=== PATIENT | male | born 1950 | race Caucasian/White ===

== ENCOUNTER 2017-07-06 20:10 | Emergency (ER) | payer MEDICARE, BC ==
--- NOTE | 2017-07-06 20:30 | EDM.PDOC ---
ED HPI GENERAL MEDICAL PROBLEM - General Chief Complaint: Neuro Symptoms/Deficits Stated Complaint: BY AMBULANCE Time Seen by Provider: 07/06/17 20:24 Source of Information: Reports: Patient, EMS History Limitations: Reports: No Limitations - History of Present Illness INITIAL COMMENTS - FREE TEXT/NARRATIVE: pt states was sitting watching TV when left arm got numb & tingling, denies CP/ SPB/RAMIREZ. had GA 15 years ago and 12 stents last one 5 years ago and also had defib placed 5 years ago in [place]. presently feeling better with arm numbness & tingling. EMS states pt BP high but en route pt became more relaxed and was joking and laughing. denies witnessing motor deficits. - Related Data Allergies Allergy/AdvReac Type Severity Reaction Status Date / Time cephalexin Allergy Anaphylactic Verified 07/06/17 20:17 Shock Home Meds: Home Meds Aspirin [Halfprin] 81 mg PO DAILY 07/24/16 [History] Furosemide [Lasix] 20 mg PO DAILY 07/24/16 [History] Insulin Aspart [NovoLOG] 20 units SQ TIDMEALS 07/24/16 [History] Insulin Detemir [Levemir Flextouch] 80 units SQ BEDTIME 07/24/16 [History] Isosorbide Mononitrate [Imdur] 60 mg PO DAILY 07/24/16 [History] Metoprolol Tartrate [Lopressor] 50 mg PO DAILY 07/24/16 [History] Nitroglycerin [Nitrostat] 0.4 mg SL ASDIRECTED 07/24/16 [History] Pantoprazole [ProTONIX] 40 mg PO DAILY 07/24/16 [History] amLODIPine [Norvasc] 5 mg PO DAILY 07/24/16 [History] atorvaSTATin [Lipitor] 40 mg PO BEDTIME 07/24/16 [History] Social & Family History - Tobacco Use Smoking Status *Q: Never Smoker - Recreational Drug Use Recreational Drug Use: No ED ROS GENERAL - Review of Systems Review Of Systems: ROS reveals no pertinent complaints other than HPI. ED EXAM, NEURO - Physical Exam Exam: See Below Exam Limited By: No Limitations General Appearance: Alert, WD/WN, No Apparent Distress Ears: Hearing Grossly Normal Throat/Mouth: Normal Voice, No Airway Compromise Head Exam: Atraumatic Neck: Non-Tender, Full Range of Motion Respiratory/Chest: No Respiratory Distress Cardiovascular: Regular Rate, Rhythm GI/Abdominal: Soft, Non-Tender Neurological: Alert, Normal Mood/Affect, No Motor/Sensory Deficits Extremities: Normal Inspection, Normal Range of Motion Psychiatric: Normal Affect, Normal Mood Skin Exam: Warm, Dry, Normal Color Course - Vital Signs Last Recorded V/S: Last Vital Signs Temp 37.7 C 07/06/17 20:20 Pulse 61 07/06/17 20:20 Resp 18 07/06/17 20:30 BP 159/61 H 07/06/17 21:29 Pulse Ox 96 07/06/17 20:30 - Orders/Labs/Meds Orders: Active Orders 24 hr Category Date Time Status EKG 12 Lead [EKG Documentation Completion] [RC] STAT Care 07/06/17 20:17 Active Labs: Laboratory Tests 07/06/17 07/06/17 07/06/17 Range/Units 20:20 20:20 20:20 WBC 4.9 L (5.0-10.0) 10^3/uL RBC 4.29 L (4.6-6.2) 10^6/uL Hgb 13.0 L (14.0-18.0) g/dL Hct 37.7 L (40.0-54.0) % MCV 87.9 (80-100) fL MCH 30.3 (27.0-34.0) pg MCHC 34.5 (33.0-35.0) g/dL Plt Count 206 (150-450) 10^3/uL Neut % (Auto) 58.5 (42.2-75.2) % Lymph % (Auto) 21.8 (20.5-50.1) % [place] % (Auto) 14.4 H (2-8) % Eos % (Auto) 5.1 H (1.0-3.0) % Baso % (Auto) 0.2 (0.0-1.0) % PT 9.5 (9.0-12.0) SEC INR 0.9 (0.9-1.2) APTT 28.8 (22.0-34.0) SEC Sodium 137 (135-145) mmol/L Potassium 4.0 (3.6-5.0) mmol/L Chloride 104 (101-111) mmol/L Carbon Dioxide 25.0 (21.0-31.0) mmol/L Anion Gap 12.0 BUN 27 H (7-18) mg/dL Creatinine 2.0 H (0.6-1.3) mg/dL Est Cr Clr Drug Dosing 36.82 mL/min Estimated GFR (MDRD) 34 BUN/Creatinine Ratio 13.50 Glucose 177 H (74-105) mg/dL Calcium 8.6 (8.4-10.2) mg/dl Total Bilirubin 0.4 (0.2-1.0) mg/dL AST 26 (10-42) IU/L ALT 21 (10-60) IU/L Alkaline Phosphatase 69 (42-121) IU/L Troponin I 0.02 (0.00-0.02) ng/ml Total Protein 6.6 L (6.7-8.2) g/dl Albumin 3.5 (3.2-5.5) g/dl Globulin 3.1 Albumin/Globulin Ratio 1.13 Meds: Medications Discontinued Medications Generic Name Dose Route Start Last Admin Trade Name Padilla PRN Reason Stop Dose Admin Clonidine HCl 0.1 mg 07/06/17 21:19 07/06/17 21:29 Catapres PO 07/06/17 21:20 0.1 mg ONETIME ONE Administration - Re-Assessments/Exams Free Text/Narrative Re-Assessment/Exam: 07/06/17 21:18 results discussed with pt who feeling much better numbness gone but hands has slight tingling sensation only. 07/06/17 22:44 s/p catapress with decrease in BP pt continues to feels fine prefers to go home and will watch his salt intake. states did have more salty foods past few days. Departure - Departure Time of Disposition: 22:50 Disposition: Home, Self-Care 01 Condition: Good Clinical Impression: Hypertension Qualifiers: Hypertension type: unspecified secondary hypertension Qualified Code(s): I15.9 - Secondary hypertension, unspecified - Discharge Information Instructions: Hypertension, Lidt-nr-Eeno Forms: ED Department Discharge Additional Instructions: 1) continue home meds 2) avoid too much salty foods 3) see family doctor Sunday 4) return if there is any change or concerns - My Orders Last 24 Hours: My Active Orders 07/06/17 20:17 EKG 12 Lead [EKG Documentation Completion] [RC] STAT - Assessment/Plan Last 24 Hours: My Active Orders 07/06/17 20:17 EKG 12 Lead [EKG Documentation Completion] [RC] STAT
[2017-07-06] MEDS ORDERED: cloNIDine 0.1 MG Tab PO ONE (21:19)
[2017-07-06 21:31] VITALS: BP 159/61
--- NOTE | 2017-07-09 11:16 | EKG ---
07/06/2017- [facility] - This is a 12-lead standard EKG showing normal sinus rhythm with ventricular rate 62 beats per minute. Normal MN interval, QRS duration. Normal axis. No significant ST-T changes. [facility] /[id number]
== END 2017-07-06 22:53 | disposition home or self-care (01) ==
LOC: DL.ED 20:10
DX: I15.9 Secondary hypertension, unspecified (principal); Z88.1 Allergy status to other antibiotic agents; Z79.82 Long term (current) use of aspirin; Z79.4 Long term (current) use of insulin; Z79.899 Other long term (current) drug therapy
CPT/HCPCS: 36415; 70450; 80053; 84484; 85025; 85610; 85730; 93005; 99284; A9270; 93010

== ENCOUNTER 2017-10-17 07:28 | Day surgery (SDC) | payer MEDICARE, BC ==
[2017-10-17] MEDS ORDERED: Moxifloxacin 0.5% Ophth Soln 3 ML Bottle EYERT ONE (07:30)
[2017-10-17] MEDS ORDERED: Phenylephrine 10% Ophth Soln 5 ML Bot EYERT ONE (07:30)
[2017-10-17] MEDS ORDERED: Ondansetron 4 MG/2 ML SDV IVPUSH PRN (07:30)
[2017-10-17] MEDS ORDERED: Sodium Chloride 0.9% 10 ML Syringe FLUSH PRN (07:30)
[2017-10-17] MEDS ORDERED: Povidone-Iodine 5% Sterile Ophth Soln 30 ML Bottle EYERT ONE ×2 (07:30→08:34)
[2017-10-17] MEDS ORDERED: Cataract Ophth Solution EYERT ONE (07:30)
[2017-10-17] MEDS ORDERED: Phenylephrine 10% Ophth Soln 5 ML Bot EYERT PRN (07:30)
[2017-10-17] MEDS ORDERED: Proparacaine 0.5% Ophth Soln 15 ML Bottle EYERT ONE (07:30)
[2017-10-17] MEDS ORDERED: Timolol Maleate 0.5% Ophth Soln 5 ML Bottle EYERT ONE (07:30)
[2017-10-17] MEDS ORDERED: Acetaminophen 325 MG Tab PO PRN (07:30)
[2017-10-17] MEDS ORDERED: Tetracaine HCl/PF 0.5% 4 ML Bottle EYERT ONE (08:33)
[2017-10-17] MEDS ORDERED: Lidocaine 1% 30 ML SDV INJECT ONE (08:39)
[2017-10-17] MEDS ORDERED: Vancomycin 500 MG SDV EYERT ONE (08:41)
[2017-10-17] MEDS ORDERED: Balanced Salt Solution Plus Ophth Irrig 500 ML Bottle IOCULAR ONE (08:41)
[2017-10-17] MEDS ORDERED: Chondroitin Sulfate/Hyaluronate Sodium Ophth Inj 0.75 ML Syringe EYERT ONE (08:46)
[2017-10-17] MEDS ORDERED: Dexamethasone/Neomycin/Polymyxin B Ophth Oint 3.5 GM Tube EYERT ONE (08:50)
[2017-10-17] MEDS ORDERED: Apraclonidine 0.5% Ophth Soln 5 ML Bot EYERT ONE (08:50)
[2017-10-17 10:35] VITALS: BP 185/68
--- NOTE | 2017-10-17 11:20 | OR ---
DATE: 10/17/2017 PREOPERATIVE DIAGNOSIS: Visually significant mixed cataract, right eye. POSTOPERATIVE DIAGNOSIS: Visually significant mixed cataract, right eye. PROCEDURE: Extracapsular cataract extraction with intraocular lens implant, right eye. ANESTHESIA: Topical/local MAC. COMPLICATIONS: None. INDICATION: Mr. Bhatt was seen in the clinic. He is unhappy with his vision. He has noticed a slow progressive change. Clinical examination reveals visually significant cataract. I explained options, offered cataract surgery; and I explained risks including the potential for infection, retinal detachment, and loss of vision amongst others. We discussed implant options. He has requested a monofocal implant. Best spectacle corrected vision is at the level of 20/40. Slit-lamp examination revealed mixed nuclear and central cortical cataract. He voiced an understanding, requested surgery, and voiced understanding with respect to risks. OPERATIVE DESCRIPTION: After informed consent was obtained and the risks, benefits, and alternatives were explained, the patient was brought to the operative suite and topical anesthesia was administered. The patient was then prepped and draped in the sterile fashion, and attention was placed on the right eye. A sterile lid speculum was placed into the right eye to allow operative exposure. A full-thickness paracentesis was made in the temporal portion of the operative eye. Preservative-free lidocaine 0.1 mL was injected into the anterior chamber followed by viscoelastic. A full-thickness corneal incision was then made into the anterior chamber. A bent needle cystotome was used to create a small anastasia in the anterior capsule. The capsulorrhexis forceps was then used to create a 360-degree curvilinear capsulorrhexis. The nucleus was then removed using a phacoemulsification handpiece, and the remaining cortical material was then removed with irrigation and aspiration handpiece. Following removal of the cortical material, the capsular bag was then inspected and noted to be free of any holes or tears. Viscoelastic was then injected into the capsular bag, and the intraocular lens was inserted into the capsular bag. The viscoelastic material was then removed from both the anterior and posterior chambers and from behind the IOL. The lens and capsular bag were then reinspected. The IOL was well centered and the capsular bag intact. The wound and paracentesis sites were inspected and hydrated with balanced saline solution. Both were found to be self-sealing. The intraocular pressure was assessed digitally and found to be within normal range. A good red reflex was noted at the completion of the procedure. No complications occurred during the operation. At the completion of the procedure, Maxitrol, Voltaren, and Iopidine drops were placed into the operative eye. A sterile eye shield was placed over the operative eye, and the patient was transported to the postoperative recovery area having tolerated the procedure well. Postoperative instructions were given along with a postoperative appointment. The patient was advised to call with any questions or concerns. [facility] /[id number]
== END 2017-10-17 09:25 | disposition home or self-care (01) ==
LOC: DL.SDS 07:28
PROVIDERS: ATTEND Ophthalmology
DX: E11.36 Type 2 diabetes mellitus with diabetic cataract (principal); H25.811 Combined forms of age-related cataract, right eye; I12.9 Hypertensive chronic kidney disease with stage 1 through stage 4 chronic kidney disease, or unspecified chronic kidney disease; E11.22 Type 2 diabetes mellitus with diabetic chronic kidney disease; N18.9 Chronic kidney disease, unspecified; E78.5 Hyperlipidemia, unspecified; E66.9 Obesity, unspecified; Z68.34 Body mass index [BMI] 34.0-34.9, adult; Z79.4 Long term (current) use of insulin; Z79.82 Long term (current) use of aspirin; Z79.899 Other long term (current) drug therapy; Z88.1 Allergy status to other antibiotic agents
CPT/HCPCS: 66984; A9270; J3370

== ENCOUNTER 2018-06-29 14:15 | Emergency (ER) | payer MEDICARE, BC ==
[2018-06-29 15:07] LABS: ANION GAP 13.8; CHLORIDE,CL 103 mmol/L (101-111); SODIUM,NA 135 mmol/L (135-145)
--- NOTE | 2018-06-29 15:23 | EDM.PDOC ---
<Ella Christian - Last Filed: 06/29/18 15:05> ED HPI GENERAL MEDICAL PROBLEM - General Chief Complaint: Cardiovascular Problem Stated Complaint: BLOOD PRESSURE UP AND DOWN Time Seen by Provider: 06/29/18 15:05 Source of Information: Reports: Patient History Limitations: Reports: No Limitations - History of Present Illness INITIAL COMMENTS - FREE TEXT/NARRATIVE: Mr. Cartagena is a 67 year old Male presenting with elevated blood pressures. He checks his blood pressures at home was concerned when he had systolic pressures above 200. He states he just doesn't feel right and with the weather he wanted to make sure everything is okay. He reports intermittent lip numbness since a stroke one year ago that has been present today. He denies headache, changes in vision or hearing, dizziness, lightheadedness, chest pain, shortness of breath, nausea, vomiting, changes in bowel or bladder habits, lower extremity edema, or weakness. Onset: Today - Related Data Allergies Allergy/AdvReac Type Severity Reaction Status Date / Time cephalexin Allergy Anaphylactic Verified 06/29/18 14:22 Shock Home Meds: Home Meds Aspirin [Halfprin] 81 mg PO DAILY 07/24/16 [History] Furosemide [Lasix] 20 mg PO BID 07/24/16 [History] Insulin Aspart [NovoLOG] 10 units SQ TIDMEALS 07/24/16 [History] Insulin Detemir [Levemir Flextouch] 80 units SQ BEDTIME 07/24/16 [History] Isosorbide Mononitrate [Imdur] 60 mg PO BID 07/24/16 [History] Nitroglycerin [Nitrostat] 0.4 mg SL ASDIRECTED 07/24/16 [History] amLODIPine [Norvasc] 5 mg PO DAILY 07/24/16 [History] atorvaSTATin [Lipitor] 40 mg PO BEDTIME 07/24/16 [History] Clopidogrel [Plavix] 75 mg PO DAILY 10/08/17 [History] Metoprolol Succinate [Toprol Xl] 100 mg PO DAILY 10/08/17 [History] Chlorthalidone 25 mg PO DAILY 06/29/18 [History] cloNIDine HCl [Catapres] 0.2 mg PO TID 06/29/18 [History] Past Medical History HEENT History: Reports: Cataract, Impaired Vision Other HEENT History: right and left eye. wears glasses Cardiovascular History: Reports: Bypass, CAD, High Cholesterol, Hypertension, Pacemaker. 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 Psychiatric History: Reports: None Endocrine/Metabolic History: Reports: Diabetes, Type II, Obesity/BMI 30+ Hematologic History: Reports: None Immunologic History: Reports: None Oncologic (Cancer) History: Reports: None Dermatologic History: Reports: None - Infectious Disease History Infectious Disease History: Reports: Chicken Pox, Measles, Shingles - Past Surgical History Head Surgeries/Procedures: Reports: None HEENT Surgical History: Reports: Adenoidectomy, Cataract Surgery, Tonsillectomy , Other (See Below) Other HEENT Surgeries/Procedures: esophageal monometry Cardiovascular Surgical History: Reports: Coronary Artery Bypass, Coronary Artery Stent, Other (See Below) Other Cardiovascular Surgeries/Procedures: Implantable cardiverter defibrillator in place GI Surgical History: Reports: Appendectomy, Cholecystectomy, Colonoscopy, EGD Male Surgical History: Reports: None Neurological Surgical History: Reports: None Musculoskeletal Surgical History: Reports: None Social & Family History - Family History Family Medical History: Noncontributory - Tobacco Use Smoking Status *Q: Never Smoker Second Hand Smoke Exposure: No - Caffeine Use Caffeine Use: Reports: Soda Caffeine Use Comment: 1 can daily - Recreational Drug Use Recreational Drug Use: No ED ROS GENERAL - Review of Systems Review Of Systems: ROS reveals no pertinent complaints other than HPI. ED EXAM, GENERAL - Physical Exam Exam: See Below General Appearance: Alert, No Apparent Distress Eye Exam: Bilateral Eye: EOMI, PERRL Ears: Normal External Exam Head: Atraumatic, Normocephalic Neck: Supple, Non-Tender, Full Range of Motion Respiratory/Chest: No Respiratory Distress, Lungs Clear, Normal Breath Sounds Cardiovascular: No Edema, No JVD, No Murmur, Bradycardia, Extra Beats (PAC) GI/Abdominal: Normal Bowel Sounds, Soft, Non-Tender, No Distention, No Abnormal Bruit Extremities: Normal Inspection, Normal Range of Motion, Non-Tender, No Pedal Edema, Normal Capillary Refill Neurological: Alert, Oriented, CN II-XII Intact, No Motor/Sensory Deficits Skin Exam: Warm, Dry, Normal Color Course - Vital Signs Last Recorded V/S: Last Vital Signs Temp 36.5 C 06/29/18 16:20 Pulse 87 06/29/18 16:20 Resp 18 06/29/18 16:20 BP 134/58 L 06/29/18 16:20 Pulse Ox 96 06/29/18 16:20 - Orders/Labs/Meds Orders: Active Orders 24 hr Category Date Time Status EKG 12 Lead [EKG Documentation Completion] [RC] STAT Care 06/29/18 14:31 Active Head wo Cont [CT] Urgent Exams 06/29/18 15:33 Taken Labs: Laboratory Tests 06/29/18 06/29/18 06/29/18 Range/Units 14:40 14:40 14:40 WBC 5.9 (5.0-10.0) 10^3/uL RBC 3.99 L (4.6-6.2) 10^6/uL Hgb 12.4 L (14.0-18.0) g/dL Hct 35.3 L (40.0-54.0) % MCV 88.5 (80-100) fL MCH 31.1 (27.0-34.0) pg MCHC 35.1 H (33.0-35.0) g/dL Plt Count 229 (150-450) 10^3/uL Neut % (Auto) 65.9 (42.2-75.2) % Lymph % (Auto) 20.4 L (20.5-50.1) % [place] % (Auto) 10.9 H (2-8) % Eos % (Auto) 2.5 (1.0-3.0) % Baso % (Auto) 0.3 (0.0-1.0) % PT 10.1 (9.0-12.0) SEC INR 1.0 (0.9-1.2) Sodium 135 (135-145) mmol/L Potassium 4.8 (3.6-5.0) mmol/L Chloride 103 (101-111) mmol/L Carbon Dioxide 23.0 (21.0-31.0) mmol/L Anion Gap 13.8 BUN 38 H (7-18) mg/dL Creatinine 1.7 H (0.6-1.3) mg/dL Est Cr Clr Drug Dosing 42.74 mL/min Estimated GFR (MDRD) 41 BUN/Creatinine Ratio 22.35 Glucose 98 (74-105) mg/dL Calcium 9.1 (8.4-10.2) mg/dl Total Bilirubin 0.8 (0.2-1.0) mg/dL AST 37 (10-42) IU/L ALT 40 (10-60) IU/L Alkaline Phosphatase 81 (42-121) IU/L Troponin I < 0.02 (0.00-0.02) ng/ml Total Protein 7.2 (6.7-8.2) g/dl Albumin 4.0 (3.2-5.5) g/dl Globulin 3.2 Albumin/Globulin Ratio 1.25 Departure - Departure Disposition: Home, Self-Care 01 Clinical Impression: Hypertensive heart disease Qualifiers: Heart failure presence: without heart failure Qualified Code(s): I11.9 - Hypertensive heart disease without heart failure Forms: ED Department Discharge Additional Instructions: 1) follow up with clinic - My Orders Last 24 Hours: My Active Orders 06/29/18 14:31 EKG 12 Lead [EKG Documentation Completion] [RC] STAT - Assessment/Plan Last 24 Hours: My Active Orders 06/29/18 14:31 EKG 12 Lead [EKG Documentation Completion] [RC] STAT <Elia Jain - Last Filed: 06/29/18 16:38> Course - Re-Assessments/Exams Free Text/Narrative Re-Assessment/Exam: 06/29/18 16:37 results discussed with pt who is feeling better with BP 134/58 Departure - Departure Time of Disposition: 16:38 Condition: Good
[2018-06-29 16:21] VITALS: BP 134/58
== END 2018-06-29 16:40 | disposition home or self-care (01) ==
LOC: DL.ED 14:15
DX: I13.10 Hypertensive heart and chronic kidney disease without heart failure, with stage 1 through stage 4 chronic kidney disease, or unspecified chronic kidney disease (principal); N18.3 Chronic kidney disease, stage 3 (moderate); K21.9 Gastro-esophageal reflux disease without esophagitis; E11.22 Type 2 diabetes mellitus with diabetic chronic kidney disease; Z79.82 Long term (current) use of aspirin; Z79.899 Other long term (current) drug therapy; Z79.4 Long term (current) use of insulin; Z95.1 Presence of aortocoronary bypass graft; Z95.0 Presence of cardiac pacemaker
CPT/HCPCS: 36415; 70450; 80053; 84484; 85025; 85610; 93005; 99284-25

== ENCOUNTER 2018-10-17 07:19 | Emergency (ER) | payer MEDICARE, BC ==
[2018-10-17] MEDS ORDERED: Oxymetazoline 0.05% Nasal Spray 15 ML Bottle NAS ONE (07:21)
--- NOTE | 2018-10-17 07:41 | EDM.PDOC ---
ED HPI GENERAL MEDICAL PROBLEM - General Chief Complaint: ENT Problem Stated Complaint: NOSE BLEED Time Seen by Provider: 10/17/18 07:25 Source of Information: Reports: Patient History Limitations: Reports: No Limitations - History of Present Illness INITIAL COMMENTS - FREE TEXT/NARRATIVE: This 68 yo male patient reports to the ED with a nosebleed. The patient reports his nosebleed started this morning at about 0600 and has continued since that time. The patient reports while he was at home he had to changed the paper towel in his right nare several times due to it getting saturated with blood. The patient reports he lives about [address] from the hospital and has not had to change his improvised packing since he left his home. The patient reports he is currently taking Aspirin and Plavix which increased his concern for being able to stop the bleeding. The patient has a history of a heart attack (17 years ago) and a dozen stents placed. The patient denies any trauma to the area. Onset: Today Onset Date: 10/17/18 Onset Time: 06:00 Duration: Constant Location: Reports: Face (right nare) Quality: Reports: Other Severity: Moderate Improves with: Reports: None Worsens with: Reports: None Context: Reports: Other Associated Symptoms: Reports: No Other Symptoms - Related Data Allergies Allergy/AdvReac Type Severity Reaction Status Date / Time cephalexin Allergy Anaphylactic Verified 06/29/18 14:22 Shock Home Meds: Home Meds Aspirin [Halfprin] 81 mg PO DAILY 07/24/16 [History] Furosemide [Lasix] 20 mg PO BID 07/24/16 [History] Insulin Aspart [NovoLOG] 10 units SQ TIDMEALS 07/24/16 [History] Insulin Detemir [Levemir Flextouch] 80 units SQ BEDTIME 07/24/16 [History] Isosorbide Mononitrate [Imdur] 60 mg PO BID 07/24/16 [History] Nitroglycerin [Nitrostat] 0.4 mg SL ASDIRECTED 07/24/16 [History] amLODIPine [Norvasc] 5 mg PO DAILY 07/24/16 [History] atorvaSTATin [Lipitor] 40 mg PO BEDTIME 07/24/16 [History] Clopidogrel [Plavix] 75 mg PO DAILY 10/08/17 [History] Metoprolol Succinate [Toprol Xl] 100 mg PO DAILY 10/08/17 [History] Chlorthalidone 25 mg PO DAILY 06/29/18 [History] cloNIDine HCl [Catapres] 0.2 mg PO TID 06/29/18 [History] Patiromer Calcium Sorbitex [Veltassa] 8.4 gm PO DAILY 10/17/18 [History] Past Medical History HEENT History: Reports: Cataract, Impaired Vision Other HEENT History: right and left eye. wears glasses Cardiovascular History: Reports: Bypass, CAD, High Cholesterol, Hypertension, Pacemaker. 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 Psychiatric History: Reports: None Endocrine/Metabolic History: Reports: Diabetes, Type II, Obesity/BMI 30+ Hematologic History: Reports: None Immunologic History: Reports: None Oncologic (Cancer) History: Reports: None Dermatologic History: Reports: None - Infectious Disease History Infectious Disease History: Reports: Chicken Pox, Measles, Shingles - Past Surgical History Head Surgeries/Procedures: Reports: None HEENT Surgical History: Reports: Adenoidectomy, Cataract Surgery, Tonsillectomy , Other (See Below) Other HEENT Surgeries/Procedures: esophageal monometry Cardiovascular Surgical History: Reports: Coronary Artery Bypass, Coronary Artery Stent, Other (See Below) Other Cardiovascular Surgeries/Procedures: Implantable cardiverter defibrillator in place GI Surgical History: Reports: Appendectomy, Cholecystectomy, Colonoscopy, EGD Male Surgical History: Reports: None Neurological Surgical History: Reports: None Musculoskeletal Surgical History: Reports: None Social & Family History - Family History Family Medical History: Noncontributory - Caffeine Use Caffeine Use: Reports: Soda Caffeine Use Comment: 1 can daily ED ROS ENT - Review of Systems Review Of Systems: ROS reveals no pertinent complaints other than HPI. ED EXAM, ENT - Physical Exam Exam: See Below Exam Limited By: No Limitations General Appearance: Alert, WD/WN, Mild Distress Eye Exam: Bilateral Eye: EOMI, Normal Inspection, PERRL Ears: Normal External Exam Nose: Normal Mucousa, Active Bleeding (Right nare, but no current profuse bleeding upon presentation in the ED. ) Mouth/Throat: Normal Inspection Head: Atraumatic, Normocephalic Neck: Normal Inspection, Supple, Non-Tender, Full Range of Motion Respiratory/Chest: No Respiratory Distress, Lungs Clear, Normal Breath Sounds, No Accessory Muscle Use, Chest Non-Tender Cardiovascular: Normal Peripheral Pulses, Regular Rate, Rhythm, No Edema, No Gallop, No JVD, No Murmur, No Rub GI/Abdominal: Normal Bowel Sounds, Soft, Non-Tender, No Organomegaly, No Distention, No Abnormal Bruit, No Mass (Male) Exam: Deferred Rectal (Males) Exam: Deferred Back: Normal Inspection, Full Range of Motion Extremities: Normal Inspection, Normal Range of Motion, Non-Tender, No Pedal Edema, Normal Capillary Refill Neurological: Alert, Oriented, CN II-XII Intact, Normal Cognition, Normal Gait, Normal Reflexes, No Motor/Sensory Deficits Psychiatric: Normal Affect, Normal Mood Skin: Warm, Dry, Intact, Normal Color, No Rash Lymphatic: No Adenopathy Course - Vital Signs Last Recorded V/S: Last Vital Signs Temp 36.4 C 10/17/18 07:30 Pulse 72 10/17/18 07:30 Resp 18 10/17/18 07:30 BP 162/69 H 10/17/18 07:30 Pulse Ox 99 10/17/18 07:30 - Orders/Labs/Meds Meds: Medications Discontinued Medications Generic Name Dose Route Start Last Admin Trade Name Freq PRN Reason Stop Dose Admin Oxymetazoline HCl 1 ml 10/17/18 07:21 10/17/18 07:30 Afrin Original 0.05% Nasal [place] DHAVAL 10/17/18 07:22 1 ml ONETIME ONE Administration Departure - Departure Time of Disposition: 08:09 Disposition: Home, Self-Care 01 Condition: Fair Clinical Impression: Epistaxis - Discharge Information *PRESCRIPTION DRUG MONITORING PROGRAM REVIEWED*: Not Applicable *COPY OF PRESCRIPTION DRUG MONITORING REPORT IN PATIENT LATANYA: Not Applicable Instructions: Nosebleed, [id number] Forms: ED Department Discharge Care Plan Goals: The patient was advised of the examination results during the visit. The patient 's nose was sprayed with Afrin while in the ED with no further bleeding. If the patient has any additional symptoms or concerns, the patient should either return to the emergency department or visit his primary care facility.
[2018-10-17 07:47] VITALS: BP 162/69
== END 2018-10-17 08:25 | disposition home or self-care (01) ==
LOC: DL.ED 07:19
DX: R04.0 Epistaxis (principal); I25.10 Atherosclerotic heart disease of native coronary artery without angina pectoris; E78.00 Pure hypercholesterolemia, unspecified; N18.3 Chronic kidney disease, stage 3 (moderate); I12.9 Hypertensive chronic kidney disease with stage 1 through stage 4 chronic kidney disease, or unspecified chronic kidney disease; K21.9 Gastro-esophageal reflux disease without esophagitis; E66.9 Obesity, unspecified; E11.22 Type 2 diabetes mellitus with diabetic chronic kidney disease; Z95.0 Presence of cardiac pacemaker; Z88.1 Allergy status to other antibiotic agents; Z79.899 Other long term (current) drug therapy; Z79.82 Long term (current) use of aspirin; Z79.4 Long term (current) use of insulin; Z68.33 Body mass index [BMI] 33.0-33.9, adult
CPT/HCPCS: 99282; A9270

== ENCOUNTER 2018-12-17 03:39 | Emergency (ER) | payer MEDICARE, BC ==
[2018-12-17] MEDS ORDERED: Aspirin 81 MG Tab.Chew PO ONE (03:53)
--- NOTE | 2018-12-17 03:55 | EDM.PDOC ---
ED HPI GENERAL MEDICAL PROBLEM - General Stated Complaint: CHEST PAIN AND NUMB ARM Time Seen by Provider: 12/17/18 03:41 Source of Information: Reports: Patient History Limitations: Reports: No Limitations - History of Present Illness INITIAL COMMENTS - FREE TEXT/NARRATIVE: ED ambulatory with c/o chest pain last 2 hours, nagging " ache, numb feeling" does not radiate to jaw. Prior heart attacks in past, felt same. Pace maker for slow rate, Prior stents, unsure, thinks about " 12", intermittent nausea, no vomiting. Numbness in left arm, tingling sensation since around 8pm last giuliana. Has not noted any weakness. BP has been up past month. NO fever, chills, cough or other GI sx. No hx of neck pain. Middle Chest Pain Score (Numeric/FACES): 2 - Related Data Allergies Allergy/AdvReac Type Severity Reaction Status Date / Time cephalexin Allergy Anaphylactic Verified 12/17/18 03:47 Shock Home Meds: Home Meds Aspirin [Halfprin] 81 mg PO DAILY 07/24/16 [History] Furosemide [Lasix] 20 mg PO BID 07/24/16 [History] Insulin Aspart [NovoLOG] 10 units SQ TIDMEALS 07/24/16 [History] Insulin Detemir [Levemir Flextouch] 80 units SQ BEDTIME 07/24/16 [History] Isosorbide Mononitrate [Imdur] 60 mg PO BID 07/24/16 [History] Nitroglycerin [Nitrostat] 0.4 mg SL ASDIRECTED 07/24/16 [History] amLODIPine [Norvasc] 5 mg PO DAILY 07/24/16 [History] atorvaSTATin [Lipitor] 40 mg PO BEDTIME 07/24/16 [History] Clopidogrel [Plavix] 75 mg PO DAILY 10/08/17 [History] Metoprolol Succinate [Toprol Xl] 100 mg PO DAILY 10/08/17 [History] Chlorthalidone 25 mg PO DAILY 06/29/18 [History] cloNIDine HCl [Catapres] 0.2 mg PO TID 06/29/18 [History] Patiromer Calcium Sorbitex [Veltassa] 8.4 gm PO DAILY 10/17/18 [History] Past Medical History HEENT History: Reports: Cataract, Impaired Vision Other HEENT History: right and left eye. wears glasses Cardiovascular History: Reports: Bypass, CAD, High Cholesterol, Hypertension, Pacemaker. Denies: Blood Clots/VTE/DVT Respiratory History: Reports: Sleep Apnea, Other (See Below) Other Respiratory History: Hx of sleep study Gastrointestinal History: Reports: GERD Genitourinary History: Reports: Chronic Renal Insuffiency, Other (See Below) Other Genitourinary History: chronic renal failure stage 3 Musculoskeletal History: Reports: None Neurological History: Reports: CVA, Other (See Below) Other Neuro History: Sophia palsy Psychiatric History: Reports: None Endocrine/Metabolic History: Reports: Diabetes, Type II, Obesity/BMI 30+ Hematologic History: Reports: None Immunologic History: Reports: None Oncologic (Cancer) History: Reports: None Dermatologic History: Reports: None - Infectious Disease History Infectious Disease History: Reports: Chicken Pox, Measles, Shingles - Past Surgical History Head Surgeries/Procedures: Reports: None HEENT Surgical History: Reports: Adenoidectomy, Cataract Surgery, Tonsillectomy , Other (See Below) Other HEENT Surgeries/Procedures: esophageal monometry Cardiovascular Surgical History: Reports: Coronary Artery Bypass, Coronary Artery Stent, Other (See Below) Other Cardiovascular Surgeries/Procedures: Implantable cardiverter defibrillator in place GI Surgical History: Reports: Appendectomy, Cholecystectomy, Colonoscopy, EGD Male Surgical History: Reports: None Neurological Surgical History: Reports: None Musculoskeletal Surgical History: Reports: None Social & Family History - Family History Family Medical History: Noncontributory - Caffeine Use Caffeine Use: Reports: Soda Caffeine Use Comment: 1 can daily ED ROS GENERAL - Review of Systems Review Of Systems: ROS reveals no pertinent complaints other than HPI. Constitutional: Reports: No Symptoms ED EXAM, GENERAL - Physical Exam Exam: See Below Exam Limited By: No Limitations General Appearance: Alert, No Apparent Distress Eye Exam: Bilateral Eye: EOMI, PERRL (3mm) Ears: Normal External Exam, Hearing Grossly Normal Nose: Normal Inspection Throat/Mouth: Normal Inspection Head: Atraumatic, Normocephalic Neck: Normal Inspection Respiratory/Chest: No Respiratory Distress, Lungs Clear Cardiovascular: Normal Peripheral Pulses, No Edema, Irregularly Irregular GI/Abdominal: Normal Bowel Sounds, Non-Tender Back Exam: Normal Inspection, Full Range of Motion, Vertebral Tenderness Neurological: Alert, Oriented, CN II-XII Intact, Normal Reflexes, No Motor/ Sensory Deficits Psychiatric: Normal Affect, Normal Mood Skin Exam: Warm, Dry, Intact, Normal Color, No Rash. No: Rash Course - Vital Signs Last Recorded V/S: Last Vital Signs Temp 99.0 F 12/17/18 03:45 Pulse 74 12/17/18 03:45 Resp 15 12/17/18 03:45 BP 197/73 H 12/17/18 05:16 Pulse Ox 98 12/17/18 03:45 - Orders/Labs/Meds Orders: Active Orders 24 hr Category Date Time Status EKG Documentation Completion [RC] URGENT Care 12/17/18 03:41 Active Glucose [Blood Glucose Check, Bedside] [RC] ONETIME Care 12/17/18 03:43 Active CXR [Chest 1V Frontal] [CR] Urgent Exams 12/17/18 03:41 Taken Head wo Cont [CT] Urgent Exams 12/17/18 03:41 Taken Labs: Laboratory Tests 12/17/18 12/17/18 12/17/18 Range/Units 03:54 03:55 03:55 WBC 7.1 (5.0-10.0) 10^3/uL RBC 4.25 L (4.6-6.2) 10^6/uL Hgb 12.8 L (14.0-18.0) g/dL Hct 36.4 L (40.0-54.0) % MCV 85.6 (80-100) fL MCH 30.1 (27.0-34.0) pg MCHC 35.2 H (33.0-35.0) g/dL Plt Count 185 (150-450) 10^3/uL Neut % (Auto) 67.9 (42.2-75.2) % Lymph % (Auto) 17.8 L (20.5-50.1) % [place] % (Auto) 11.8 H (2-8) % Eos % (Auto) 2.4 (1.0-3.0) % Baso % (Auto) 0.1 (0.0-1.0) % PT 9.8 (9.0-12.0) SEC INR 1.0 (0.9-1.2) D-Dimer, Quantitative 235 (0-400) ng/mL Sodium (135-145) mmol/L Potassium (3.6-5.0) mmol/L Chloride (101-111) mmol/L Carbon Dioxide (21.0-31.0) mmol/L Anion Gap BUN (7-18) mg/dL Creatinine (0.6-1.3) mg/dL Est Cr Clr Drug Dosing mL/min Estimated GFR (MDRD) BUN/Creatinine Ratio Glucose (74-105) mg/dL POC Glucose 224 H (70-105) mg/dl Calcium (8.4-10.2) mg/dl Magnesium (1.8-2.5) mg/dL Total Bilirubin (0.2-1.0) mg/dL AST (10-42) IU/L ALT (10-60) IU/L Alkaline Phosphatase (42-121) IU/L CK-MB (CK-2) (0.4-4.7) ng/mL Troponin I (0.00-0.02) ng/ml Total Protein (6.7-8.2) g/dl Albumin (3.2-5.5) g/dl Globulin Albumin/Globulin Ratio 12/17/18 12/17/18 Range/Units 03:55 03:55 WBC (5.0-10.0) 10^3/uL RBC (4.6-6.2) 10^6/uL Hgb (14.0-18.0) g/dL Hct (40.0-54.0) % MCV (80-100) fL MCH (27.0-34.0) pg MCHC (33.0-35.0) g/dL Plt Count (150-450) 10^3/uL Neut % (Auto) (42.2-75.2) % Lymph % (Auto) (20.5-50.1) % [place] % (Auto) (2-8) % Eos % (Auto) (1.0-3.0) % Baso % (Auto) (0.0-1.0) % PT (9.0-12.0) SEC INR (0.9-1.2) D-Dimer, Quantitative (0-400) ng/mL Sodium 138 (135-145) mmol/L Potassium 4.3 (3.6-5.0) mmol/L Chloride 107 (101-111) mmol/L Carbon Dioxide 20.0 L (21.0-31.0) mmol/L Anion Gap 15.3 BUN 40 H (7-18) mg/dL Creatinine 1.8 H (0.6-1.3) mg/dL Est Cr Clr Drug Dosing 39.82 mL/min Estimated GFR (MDRD) 38 BUN/Creatinine Ratio 22.22 Glucose 224 H (74-105) mg/dL POC Glucose (70-105) mg/dl Calcium 9.1 (8.4-10.2) mg/dl Magnesium 1.8 (1.8-2.5) mg/dL Total Bilirubin 0.7 (0.2-1.0) mg/dL AST 34 (10-42) IU/L ALT 30 (10-60) IU/L Alkaline Phosphatase 86 (42-121) IU/L CK-MB (CK-2) 3.40 (0.4-4.7) ng/mL Troponin I 0.41 H* (0.00-0.02) ng/ml Total Protein 7.2 (6.7-8.2) g/dl Albumin 3.9 (3.2-5.5) g/dl Globulin 3.3 Albumin/Globulin Ratio 1.18 Meds: Medications Discontinued Medications Generic Name Dose Route Start Last Admin Trade Name Freq PRN Reason Stop Dose Admin Aspirin 162 mg 12/17/18 03:53 12/17/18 03:58 Aspirin PO 12/17/18 03:54 162 mg ONETIME ONE Administration Heparin Sodium (Porcine) 4,000 units 12/17/18 04:54 12/17/18 05:06 Heparin Sodium IVPUSH 12/17/18 04:55 4,000 units .BOLUS ONE Administration Heparin Sodium/Sodium Chloride 25,000 units in 500 mls @ 24.625 mls/hr 05:00 12/17/18 05:06 Heparin 25,000 Units In 1/2 Ns 500 Ml IV 12 units/kg/hr TITRATE MICHELLE 24.625 mls/hr Administration Protocol 12 UNITS/KG/HR Lorazepam 1 mg 12/17/18 05:27 12/17/18 05:29 Ativan IVPUSH 12/17/18 05:28 1 mg ONETIME ONE Administration Lorazepam Confirm 12/17/18 05:27 12/17/18 05:35 Ativan Administered 12/17/18 05:28 Not Given Dose 2 mg .ROUTE .STK-MED ONE Nitroglycerin 0.4 mg 12/17/18 03:52 12/17/18 05:16 Nitrostat SL 12/17/18 03:53 0.4 mg ONETIME ONE Administration - Radiology Interpretation Free Text/Narrative:: [facility] [place] [facility] Final Radiology Report Call: [phone] assistance Online chat: [email or web address] Name: MERCY RYAN Age: 68Years M Date: 12/17/2018 SSN: -- : 1950 Study: CT HEAD WO Requesting Physician: JOSEPH PEREZ Images: 150 Addl Studies: Provided Clinical History: Contrast: Without Contrast Medium: Contrast Amount: Contrast Method: Page 1 of 2 EXAM: CT Head Without Contrast EXAM DATE/TIME: 12/17/2018 4:25 AM CLINICAL HISTORY: 68 years old, male; Other: Left arm numbness TECHNIQUE: Imaging protocol: Computed tomography images of the head without contrast. Radiation optimization: All CT scans at this facility use at least one of these dose optimization techniques: automated exposure control; mA and/or kV adjustment per patient size (includes targeted exams where dose is matched to clinical indication); or iterative reconstruction. COMPARISON: CT Head wo Cont 06/29/2018 3:46 PM FINDINGS: Brain: Normal. No hemorrhage. Unremarkable white matter. No mass effect. Ventricles: Normal. No ventriculomegaly. Bones/joints: Unremarkable. No acute fracture. Sinuses: Chronic right maxillary sinusitis. Mastoid air cells: Visualized mastoid air cells are well aerated. No mastoid effusion. Soft tissues: Unremarkable. Vasculature: Atherosclerotic calcification of the carotid siphons. IMPRESSION: 1. No acute intracranial process. 2. Chronic right maxillary sinusitis. MERCY RYAN | Final Radiology Report CONFIDENTIALITY STATEMENT This report is intended only for use by the referring physician, and only in accordance with law. If you received this in error, call [phone]. Page 2 of 2 Thank you for allowing us to participate in the care of your patient. Dictated and Authenticated by: Alma Patel MD 12/17/2018 5:13 AM Central Time ([place] & [place]) [facility] [place] [facility] Final Radiology Report Call: [phone] assistance Online chat: [email or web address] Name: MERCY RYAN Age: 68Years M Date: 12/17/2018 SSN: -- : 1950 Study: XR CHEST 1 VIEW FRONTAL Requesting Physician: JOSEPH PEREZ Images: 1 Addl Studies: Provided Clinical History: Contrast: Contrast Medium: Contrast Amount: Contrast Method: CONFIDENTIALITY STATEMENT This report is intended only for use by the referring physician, and only in accordance with law. If you received this in error, call [phone]. Page 1 of 1 EXAM: XR Chest, 1 View EXAM DATE/TIME: 12/17/2018 4:25 AM CLINICAL HISTORY: 68 years old, male; Other: Left arm numbness TECHNIQUE: Imaging protocol: XR of the chest, 1 view. COMPARISON: CR CHEST PORTABLE 10/21/2012 3:23 AM FINDINGS: Tubes, catheters and devices: Left chest wall pacemaker/defibrillator. Lungs: No interstitial infiltrate. No consolidation. Pleural space: No pleural effusion. No pneumothorax. Heart/Mediastinum: No cardiomegaly. Vasculature: Tortuous and atherosclerotic thoracic aorta. Bones/joints: Stable. IMPRESSION: No acute cardiopulmonary process. Thank you for allowing us to participate in the care of your patient. Dictated and Authenticated by: Alma Patel MD 12/17/2018 5:14 AM Central Time ([place] & [place]) - Re-Assessments/Exams Free Text/Narrative Re-Assessment/Exam: 12/17/18 04:58 Pain in chest relieved after one nitro. Vague discomfort tingling in left arm, No weakness or change in sensation. Describes similar sensation with previous SC. Dr Henry accepting of patient. Tx via [facility]. Heparin gtt, initiated prior tx. Departure - Departure Time of Disposition: 05:35 Disposition: DC/Tfer to Acute Hospital 02 Reason for Transfer *Q: Other Condition: Undetermined Clinical Impression: NSTEMI (non-ST elevated myocardial infarction) HTN (hypertension) Qualifiers: Hypertension type: unspecified secondary hypertension Qualified Code(s): I15.9 - Secondary hypertension, unspecified Forms: ED Department Discharge - My Orders Last 24 Hours: My Active Orders 12/17/18 03:41 EKG Documentation Completion [RC] URGENT CXR [Chest 1V Frontal] [CR] Urgent Head wo Cont [CT] Urgent 12/17/18 03:43 Glucose [Blood Glucose Check, Bedside] [RC] ONETIME - Assessment/Plan Last 24 Hours: My Active Orders 12/17/18 03:41 EKG Documentation Completion [RC] URGENT CXR [Chest 1V Frontal] [CR] Urgent Head wo Cont [CT] Urgent 12/17/18 03:43 Glucose [Blood Glucose Check, Bedside] [RC] ONETIME
[2018-12-17] MEDS: Nitroglycerin 0.4 MG Tab.SL SL ONE ×2 (03:58→05:16)
[2018-12-17 04:22] LABS: ANION GAP 15.3
[2018-12-17] MEDS ORDERED: Heparin Sodium 5,000 Units/ML Vial IVPUSH ONE (04:54)
[2018-12-17] MEDS ORDERED: Heparin Sodium/0.45% NaCl 25,000 UNITS/500 ML BAG IV SCH (05:00)
[2018-12-17 05:17] VITALS: BP 197/73
[2018-12-17] MEDS ORDERED: LORazepam 2 MG/ML Syringe ONE (05:27)
[2018-12-17] MEDS ORDERED: LORazepam 2 MG/ML Syringe IVPUSH ONE (05:27)
== END 2018-12-17 05:34 ==
LOC: DL.ED 03:39
DX: I21.4 Non-ST elevation (NSTEMI) myocardial infarction (principal); I15.1 Hypertension secondary to other renal disorders; E11.22 Type 2 diabetes mellitus with diabetic chronic kidney disease; I12.9 Hypertensive chronic kidney disease with stage 1 through stage 4 chronic kidney disease, or unspecified chronic kidney disease; N18.3 Chronic kidney disease, stage 3 (moderate); E78.00 Pure hypercholesterolemia, unspecified; E66.9 Obesity, unspecified; K21.9 Gastro-esophageal reflux disease without esophagitis; Z86.73 Personal history of transient ischemic attack (TIA), and cerebral infarction without residual deficits; Z88.1 Allergy status to other antibiotic agents; Z79.82 Long term (current) use of aspirin; Z79.4 Long term (current) use of insulin; Z90.49 Acquired absence of other specified parts of digestive tract; Z98.890 Other specified postprocedural states; Z68.30 Body mass index [BMI] 30.0-30.9, adult
CPT/HCPCS: 36415; 70450; 71045; 80053; 82553; 82962; 83735; 84484; 85025; 85379; 85610; 93005; 96365; 96375; 99285; A9270; J1644; J2060

== ENCOUNTER 2019-04-03 21:55 | Emergency (ER) | payer MEDICARE, BC ==
[2019-04-03] MEDS ORDERED: Sodium Chloride 0.9% 10 ML Syringe FLUSH PRN (22:00)
[2019-04-03 22:11] VITALS: PULSE 58
--- NOTE | 2019-04-03 22:22 | EDM.PDOC ---
ED HPI GENERAL MEDICAL PROBLEM - General Chief Complaint: Chest Pain Stated Complaint: CHEST PAINS, SHOULDER /ARM NUMB Time Seen by Provider: 04/03/19 22:15 Source of Information: Reports: Patient, RN, RN Notes Reviewed History Limitations: Reports: No Limitations - History of Present Illness INITIAL COMMENTS - FREE TEXT/NARRATIVE: PATIENT PRESENTS TO ER with complaint of left sided chest pain, left shoulder pain, and feeling of numbness in the left arm. Patient states he had NSTEMI in December 2018. Patient states he had an angiogram done at that time. Patient states he has a history of several heart attacks in the past, pacemaker defibrillator, stents, bypass. Patient states this episode of pain feels similar to past episodes of MIs. Patient admits to diabetes, and some kidney dysfunction. Patient states he took a nitroglycerin at home prior to coming to the ER, and states he is mostly pain-free at this time. Patient was at rest when the pain began, sitting in the chair. Time of onset was about 8:30 PM tonight. 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 Left Anterior Chest Pain Score (Numeric/FACES): 4 - Related Data Allergies Allergy/AdvReac Type Severity Reaction Status Date / Time cephalexin Allergy Anaphylactic Verified 12/17/18 03:47 Shock Home Meds: Home Meds Aspirin [Halfprin] 81 mg PO DAILY 07/24/16 [History] Furosemide [Lasix] 20 mg PO BID 07/24/16 [History] Insulin Aspart [NovoLOG] 10 units SQ TIDMEALS 07/24/16 [History] Insulin Detemir [Levemir Flextouch] 80 units SQ BEDTIME 07/24/16 [History] Isosorbide Mononitrate [Imdur] 60 mg PO BID 07/24/16 [History] Nitroglycerin [Nitrostat] 0.4 mg SL ASDIRECTED 07/24/16 [History] amLODIPine [Norvasc] 5 mg PO DAILY 07/24/16 [History] atorvaSTATin [Lipitor] 40 mg PO BEDTIME 07/24/16 [History] Clopidogrel [Plavix] 75 mg PO DAILY 10/08/17 [History] Metoprolol Succinate [Toprol Xl] 100 mg PO DAILY 10/08/17 [History] Chlorthalidone 25 mg PO DAILY 06/29/18 [History] cloNIDine HCl [Catapres] 0.2 mg PO TID 06/29/18 [History] Patiromer Calcium Sorbitex [Veltassa] 8.4 gm PO DAILY 10/17/18 [History] Past Medical History HEENT History: Reports: Cataract, Impaired Vision Other HEENT History: right and left eye. wears glasses Cardiovascular History: Reports: Bypass, CAD, High Cholesterol, Hypertension, ID , Pacemaker Respiratory History: Reports: Sleep Apnea, Other (See Below) Other Respiratory History: Hx of sleep study Gastrointestinal History: Reports: GERD Genitourinary History: Reports: Chronic Renal Insuffiency, Other (See Below) Other Genitourinary History: chronic renal failure stage 3 Musculoskeletal History: Reports: None Neurological History: Reports: CVA, Other (See Below) Other Neuro History: [place] palsy Psychiatric History: Reports: None Endocrine/Metabolic History: Reports: Diabetes, Type II, Obesity/BMI 30+ Hematologic History: Reports: None Immunologic History: Reports: None Oncologic (Cancer) History: Reports: None Dermatologic History: Reports: None - Infectious Disease History Infectious Disease History: Reports: Chicken Pox, Measles, Shingles - Past Surgical History Head Surgeries/Procedures: Reports: None HEENT Surgical History: Reports: Adenoidectomy, Cataract Surgery, Tonsillectomy , Other (See Below) Other HEENT Surgeries/Procedures: esophageal monometry Cardiovascular Surgical History: Reports: Coronary Artery Bypass, Coronary Artery Stent, Other (See Below) Other Cardiovascular Surgeries/Procedures: Implantable cardiverter defibrillator in place GI Surgical History: Reports: Appendectomy, Cholecystectomy, Colonoscopy, EGD Male Surgical History: Reports: None Neurological Surgical History: Reports: None Musculoskeletal Surgical History: Reports: None Social & Family History - Family History Family Medical History: Noncontributory - Tobacco Use Smoking Status *Q: Unknown Ever Smoked - Caffeine Use Caffeine Use: Reports: None Caffeine Use Comment: 1 can daily - Alcohol Use Days Per Week of Alcohol Use: 1 Number of Drinks Per Day: 1 Total Drinks Per Week: 1 - Recreational Drug Use Recreational Drug Use: No ED ROS GENERAL - Review of Systems Review Of Systems: Comprehensive ROS is negative, except as noted in HPI. ED EXAM, GENERAL - Physical Exam Exam: See Below Exam Limited By: No Limitations General Appearance: Alert, WD/WN, No Apparent Distress Eye Exam: Bilateral Eye: EOMI, Normal Inspection Ears: Normal External Exam, Hearing Grossly Normal Nose: Normal Inspection Throat/Mouth: Normal Inspection, Normal Voice, No Airway Compromise Head: Atraumatic, Normocephalic Neck: Normal Inspection, Supple, Non-Tender, Full Range of Motion Respiratory/Chest: No Respiratory Distress, Lungs Clear, Normal Breath Sounds, No Accessory Muscle Use, Chest Non-Tender Cardiovascular: Normal Peripheral Pulses, Regular Rate, Rhythm, No Edema, No Gallop, No JVD, No Murmur, No Rub Peripheral Pulses: 2+: Radial (L), Radial (R) GI/Abdominal: Normal Bowel Sounds, Soft, Non-Tender (Male) Exam: Deferred Rectal (Males) Exam: Deferred Back Exam: Normal Inspection, Full Range of Motion, NT Extremities: Normal Inspection, Normal Range of Motion, Non-Tender, Normal Capillary Refill, No Pedal Edema Neurological: Alert, Oriented, CN II-XII Intact, Normal Cognition, Normal Gait, Normal Reflexes, No Motor/Sensory Deficits Psychiatric: Normal Affect, Normal Mood Skin Exam: Warm, Dry, Intact, Normal Color, No Rash Lymphatic: No Adenopathy Course - Vital Signs Last Recorded V/S: Last Vital Signs Temp 97.5 F 04/03/19 22:09 Pulse 58 L 04/03/19 22:09 Resp 18 04/03/19 22:09 BP 150/55 H 04/03/19 23:34 Pulse Ox 100 04/03/19 22:09 - Orders/Labs/Meds Labs: Laboratory Tests 04/03/19 04/03/19 04/03/19 Range/Units 22:10 22:10 22:10 WBC 5.9 (5.0-10.0) 10^3/uL RBC 3.73 L (4.6-6.2) 10^6/uL Hgb 11.3 L D (14.0-18.0) g/dL Hct 32.7 L (40.0-54.0) % MCV 87.7 (80-100) fL MCH 30.3 (27.0-34.0) pg MCHC 34.6 (33.0-35.0) g/dL Plt Count 168 (150-450) 10^3/uL Neut % (Auto) 61.5 (42.2-75.2) % Lymph % (Auto) 19.1 L (20.5-50.1) % [place] % (Auto) 13.2 H (2-8) % Eos % (Auto) 6.0 H (1.0-3.0) % Baso % (Auto) 0.2 (0.0-1.0) % PT 9.9 (9.0-12.0) SEC INR 1.0 (0.9-1.2) Sodium 135 (135-145) mmol/L Potassium 4.2 (3.6-5.0) mmol/L Chloride 104 (101-111) mmol/L Carbon Dioxide 23.0 (21.0-31.0) mmol/L Anion Gap 12.2 BUN 34 H (7-18) mg/dL Creatinine 2.0 H (0.6-1.3) mg/dL Est Cr Clr Drug Dosing 34.68 mL/min Estimated GFR (MDRD) 33 BUN/Creatinine Ratio 17.00 Glucose 252 H (74-105) mg/dL Calcium 8.6 (8.4-10.2) mg/dl Total Bilirubin 0.6 (0.2-1.0) mg/dL AST 23 (10-42) IU/L ALT 23 (10-60) IU/L Alkaline Phosphatase 75 (42-121) IU/L Troponin I < 0.02 (0.00-0.02) ng/ml Total Protein 7.3 (6.7-8.2) g/dl Albumin 4.1 (3.2-5.5) g/dl Globulin 3.2 Albumin/Globulin Ratio 1.28 04/04/19 Range/Units 02:05 WBC (5.0-10.0) 10^3/uL RBC (4.6-6.2) 10^6/uL Hgb (14.0-18.0) g/dL Hct (40.0-54.0) % MCV (80-100) fL MCH (27.0-34.0) pg MCHC (33.0-35.0) g/dL Plt Count (150-450) 10^3/uL Neut % (Auto) (42.2-75.2) % Lymph % (Auto) (20.5-50.1) % [place] % (Auto) (2-8) % Eos % (Auto) (1.0-3.0) % Baso % (Auto) (0.0-1.0) % PT (9.0-12.0) SEC INR (0.9-1.2) Sodium (135-145) mmol/L Potassium (3.6-5.0) mmol/L Chloride (101-111) mmol/L Carbon Dioxide (21.0-31.0) mmol/L Anion Gap BUN (7-18) mg/dL Creatinine (0.6-1.3) mg/dL Est Cr Clr Drug Dosing mL/min Estimated GFR (MDRD) BUN/Creatinine Ratio Glucose (74-105) mg/dL Calcium (8.4-10.2) mg/dl Total Bilirubin (0.2-1.0) mg/dL AST (10-42) IU/L ALT (10-60) IU/L Alkaline Phosphatase (42-121) IU/L Troponin I < 0.02 (0.00-0.02) ng/ml Total Protein (6.7-8.2) g/dl Albumin (3.2-5.5) g/dl Globulin Albumin/Globulin Ratio Meds: Medications Discontinued Medications Generic Name Dose Route Start Last Admin Trade Name Freq PRN Reason Stop Dose Admin Nitroglycerin 0.4 mg 04/03/19 23:29 04/03/19 23:34 Nitrostat SL 04/03/19 23:30 0.4 mg Q5M ONE Administration Sodium Chloride 10 ml 04/03/19 22:00 04/03/19 22:10 Saline Flush FLUSH 10 ml ASDIRECTED PRN Administration Keep Vein Open - Radiology Interpretation Free Text/Narrative:: Chest xray: FINDINGS: Tubes, catheters and devices: Cardiac pacemaker without gross hardware complication or change. Lungs: Normal pulmonary expansion. Pulmonary vasculature grossly normal. No infiltrates. Pleural space: No pleural effusion. No pneumothorax. Heart/Mediastinum: Heart size normal. No tracheal/mediastinal shift. Bones/joints: Prior median sternotomy. No acute osseous abnormalities are identified. IMPRESSION: No acute thoracic process. No change from prior exam 12/17/2018. Thank you for allowing us to participate in the care of your patient. Dictated and Authenticated by: Cornelio Menchaca MD 04/03/2019 10:35 PM Central Time ([place] & [place]) See rad report - Re-Assessments/Exams Free Text/Narrative Re-Assessment/Exam: 04/04/19 00:42 Patient taken to the medical floor for extended ER. Troponin and EKG will be rechecked in 4 hours, unless signs and symptoms change. Patient states understanding. 04/04/19 04:55 repeat troponin is negative, repeat KG shows sinus arrhythmia with a rate of 56 , no ST elevation. Departure - Departure Time of Disposition: 08:26 Disposition: Home, Self-Care 01 Reason for Transfer *Q: Other Condition: Fair Clinical Impression: Angina at rest Instructions: Coronary Artery Disease, Male, Angina Pectoris, [id number] Referrals: PCP,Unobtain [Primary Care Provider] - Forms: ED Department Discharge Additional Instructions: use nitroglycerin as directed for pain as needed Return to the ER with any worsening of symptoms Follow-up with your primary care provider Sepsis Event Note - Evaluation Sepsis Screening Result: No Definite Risk - Focused Exam Date Exam was Performed: 04/07/19 Time Exam was Performed: 07:00
[2019-04-03 22:38] LABS: ANION GAP 12.2; CHLORIDE,CL 104 mmol/L (101-111); SODIUM,NA 135 mmol/L (135-145)
[2019-04-03] MEDS ORDERED: Nitroglycerin 0.4 MG Tab.SL SL ONE (23:29)
[2019-04-03 23:35] VITALS: BP 150/55
== END 2019-04-04 08:26 | disposition home or self-care (01) ==
LOC: DL.ED 21:55
DX: I25.119 Atherosclerotic heart disease of native coronary artery with unspecified angina pectoris (principal); I25.2 Old myocardial infarction; I12.9 Hypertensive chronic kidney disease with stage 1 through stage 4 chronic kidney disease, or unspecified chronic kidney disease; N18.3 Chronic kidney disease, stage 3 (moderate); E78.00 Pure hypercholesterolemia, unspecified; E11.22 Type 2 diabetes mellitus with diabetic chronic kidney disease; E66.9 Obesity, unspecified; Z68.35 Body mass index [BMI] 35.0-35.9, adult; Z95.1 Presence of aortocoronary bypass graft; Z79.4 Long term (current) use of insulin; Z79.02 Long term (current) use of antithrombotics/antiplatelets; Z79.899 Other long term (current) drug therapy; Z86.73 Personal history of transient ischemic attack (TIA), and cerebral infarction without residual deficits; Z88.1 Allergy status to other antibiotic agents; Z88.2 Allergy status to sulfonamides; Z95.5 Presence of coronary angioplasty implant and graft
CPT/HCPCS: 36415; 71045; 80053; 84484; 85025; 85610; 93005; 99285; A9270

== ENCOUNTER 2019-05-20 00:42 | Emergency (ER) | payer MEDICARE, BC ==
[2019-05-20 01:01] VITALS: BP 165/62; PULSE 60
[2019-05-20 01:35] LABS: ANION GAP 11.1; CHLORIDE,CL 103 mmol/L (101-111); SODIUM,NA 135 mmol/L (135-145)
--- NOTE | 2019-05-20 02:16 | EDM.PDOC ---
ED HPI GENERAL MEDICAL PROBLEM - General Chief Complaint: Chest Pain Stated Complaint: CHEST PAIN AND RIGHT HAND NUMBNESS Time Seen by Provider: 05/20/19 01:00 Source of Information: Reports: Patient, RN, RN Notes Reviewed History Limitations: Reports: No Limitations - History of Present Illness INITIAL COMMENTS - FREE TEXT/NARRATIVE: patient presents to ER with complaint of left-sided chest pain, left shoulder pain, left arm numbness, tingling. Patient had a NSTEMI on Labor Day this past year, angiogram was done, no stents placed. Patient states the chest pain began earlier this afternoon, and have been intermittent. Patient states blood pressure was elevated earlier today, blood pressure within normal limits at this time. Patient states pain has resolved at this time. Onset: Today, Sudden Duration: Intermittent - Related Data Allergies Allergy/AdvReac Type Severity Reaction Status Date / Time cephalexin Allergy Anaphylactic Verified 05/20/19 01:01 Shock Home Meds: Home Meds Aspirin [Halfprin] 81 mg PO DAILY 07/24/16 [History] Furosemide [Lasix] 20 mg PO BID 07/24/16 [History] Insulin Aspart [NovoLOG] 10 units SQ TIDMEALS 07/24/16 [History] Insulin Detemir [Levemir Flextouch] 80 units SQ BEDTIME 07/24/16 [History] Isosorbide Mononitrate [Imdur] 60 mg PO BID 07/24/16 [History] Nitroglycerin [Nitrostat] 0.4 mg SL ASDIRECTED 07/24/16 [History] amLODIPine [Norvasc] 5 mg PO DAILY 07/24/16 [History] atorvaSTATin [Lipitor] 40 mg PO BEDTIME 07/24/16 [History] Clopidogrel [Plavix] 75 mg PO DAILY 10/08/17 [History] Metoprolol Succinate [Toprol Xl] 100 mg PO DAILY 10/08/17 [History] Chlorthalidone 25 mg PO DAILY 06/29/18 [History] cloNIDine HCl [Catapres] 0.2 mg PO TID 06/29/18 [History] Patiromer Calcium Sorbitex [Veltassa] 8.4 gm PO DAILY 10/17/18 [History] Past Medical History HEENT History: Reports: Cataract, Impaired Vision Other HEENT History: right and left eye. 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 Psychiatric History: Reports: None Endocrine/Metabolic History: Reports: Diabetes, Type II, Obesity/BMI 30+ Hematologic History: Reports: None Immunologic History: Reports: None Oncologic (Cancer) History: Reports: None Dermatologic History: Reports: None - Infectious Disease History Infectious Disease History: Reports: Chicken Pox, Measles, Shingles - Past Surgical History Head Surgeries/Procedures: Reports: None HEENT Surgical History: Reports: Adenoidectomy, Cataract Surgery, Tonsillectomy , Other (See Below) Other HEENT Surgeries/Procedures: esophageal monometry Cardiovascular Surgical History: Reports: Coronary Artery Bypass, Coronary Artery Stent, Other (See Below) Other Cardiovascular Surgeries/Procedures: Implantable cardiverter defibrillator in place GI Surgical History: Reports: Appendectomy, Cholecystectomy, Colonoscopy, EGD Male Surgical History: Reports: None Neurological Surgical History: Reports: None Musculoskeletal Surgical History: Reports: None Social & Family History - Family History Family Medical History: Noncontributory - Tobacco Use Smoking Status *Q: Never Smoker Second Hand Smoke Exposure: No - Caffeine Use Caffeine Use: Reports: None Caffeine Use Comment: 1 can daily - Recreational Drug Use Recreational Drug Use: No ED ROS GENERAL - Review of Systems Review Of Systems: Comprehensive ROS is negative, except as noted in HPI. ED EXAM, GENERAL - Physical Exam Exam: See Below Exam Limited By: No Limitations General Appearance: Alert, WD/WN, No Apparent Distress Eye Exam: Bilateral Eye: EOMI, Normal Inspection Ears: Normal External Exam, Hearing Grossly Normal Nose: Normal Inspection Throat/Mouth: Normal Inspection, Normal Voice, No Airway Compromise Head: Atraumatic, Normocephalic Neck: Normal Inspection, Supple, Non-Tender, Full Range of Motion Respiratory/Chest: No Respiratory Distress, Lungs Clear, No Accessory Muscle Use , Chest Non-Tender, Decreased Breath Sounds Cardiovascular: Normal Peripheral Pulses, Regular Rate, Rhythm, No Edema, No Gallop, No JVD, No Murmur, No Rub Peripheral Pulses: 2+: Radial (L), Radial (R) GI/Abdominal: Normal Bowel Sounds, Soft, Non-Tender (Male) Exam: Deferred Rectal (Males) Exam: Deferred Back Exam: Normal Inspection, Full Range of Motion, NT Extremities: Normal Inspection, Normal Range of Motion, Non-Tender, Normal Capillary Refill, No Pedal Edema Neurological: Alert, Oriented, CN II-XII Intact, Normal Cognition, Normal Gait, Normal Reflexes, No Motor/Sensory Deficits Psychiatric: Normal Affect, Normal Mood Skin Exam: Warm, Dry, Intact, Normal Color, No Rash Lymphatic: No Adenopathy Course - Vital Signs Last Recorded V/S: Last Vital Signs Temp 98.2 F 05/20/19 00:49 Pulse 60 05/20/19 00:49 Resp 20 05/20/19 00:49 BP 165/62 H 05/20/19 00:49 Pulse Ox 99 05/20/19 00:49 - Orders/Labs/Meds Orders: Active Orders 24 hr Category Date Time Status EKG Documentation Completion [RC] STAT Care 05/20/19 00:49 Active Chest 1V Frontal [CR] Stat Exams 05/20/19 00:51 Taken Labs: Laboratory Tests 05/20/19 05/20/19 05/20/19 Range/Units 01:06 01:06 01:06 WBC 6.8 (5.0-10.0) 10^3/uL RBC 3.65 L (4.6-6.2) 10^6/uL Hgb 11.2 L (14.0-18.0) g/dL Hct 32.0 L (40.0-54.0) % MCV 87.7 (80-100) fL MCH 30.7 (27.0-34.0) pg MCHC 35.0 (33.0-35.0) g/dL Plt Count 186 (150-450) 10^3/uL Neut % (Auto) 65.5 (42.2-75.2) % Lymph % (Auto) 16.4 L (20.5-50.1) % Jones % (Auto) 12.3 H (2-8) % Eos % (Auto) 5.4 H (1.0-3.0) % Baso % (Auto) 0.4 (0.0-1.0) % PT 9.7 (9.0-12.0) SEC INR 0.9 (0.9-1.2) Sodium 135 (135-145) mmol/L Potassium 4.1 (3.6-5.0) mmol/L Chloride 103 (101-111) mmol/L Carbon Dioxide 25.0 (21.0-31.0) mmol/L Anion Gap 11.1 BUN 34 H (7-18) mg/dL Creatinine 1.9 H (0.6-1.3) mg/dL Est Cr Clr Drug Dosing 37.73 mL/min Estimated GFR (MDRD) 36 BUN/Creatinine Ratio 17.89 Glucose 223 H (74-105) mg/dL Calcium 9.0 (8.4-10.2) mg/dl Total Bilirubin 0.7 (0.2-1.0) mg/dL AST 29 (10-42) IU/L ALT 26 (10-60) IU/L Alkaline Phosphatase 69 (42-121) IU/L Troponin I < 0.02 (0.00-0.02) ng/ml B-Natriuretic Peptide 141 H (0-100) pg/ml Total Protein 7.3 (6.7-8.2) g/dl Albumin 4.0 (3.2-5.5) g/dl Globulin 3.3 Albumin/Globulin Ratio 1.21 - Radiology Interpretation Free Text/Narrative:: Chest xray: FINDINGS: Tubes, catheters and devices: A pacemaker defibrillator is placed via the left subclavian vein. Lungs: Unremarkable. No consolidation. Pleural space: Unremarkable. No pleural effusion. No pneumothorax. Heart/Mediastinum: Unremarkable. No cardiomegaly. Bones/joints: Unremarkable. IMPRESSION: There are no acute chest findings. Thank you for allowing us to participate in the care of your patient. Dictated and Authenticated by: Rommel Plascencia MD 05/20/2019 1:35 AM Central Time ([place] & [place]) See rad report Departure - Departure Time of Disposition: 02:16 Disposition: Home, Self-Care 01 Reason for Transfer *Q: Other Condition: Fair Clinical Impression: Angina at rest Instructions: Nonspecific Chest Pain, [id number], Angina Pectoris, Easy-to- Read Referrals: PCP,None [Ordering Only Provider] - Forms: ED Department Discharge Additional Instructions: return to the ER with any worsening of symptoms Follow-up with your primary care provider Sepsis Event Note - Evaluation Sepsis Screening Result: No Definite Risk - Focused Exam Vital Signs: Vital Signs Temp Pulse Resp BP Pulse Ox 05/20/19 00:49 98.2 F 60 20 165/62 H 99 Date Exam was Performed: 05/20/19 Time Exam was Performed: 04:08 - My Orders Last 24 Hours: My Active Orders 05/20/19 00:49 EKG Documentation Completion [RC] STAT 05/20/19 00:51 Chest 1V Frontal [CR] Stat - Assessment/Plan Last 24 Hours: My Active Orders 05/20/19 00:49 EKG Documentation Completion [RC] STAT 05/20/19 00:51 Chest 1V Frontal [CR] Stat
== END 2019-05-20 02:25 | disposition home or self-care (01) ==
LOC: DL.ED 00:42
DX: I20.9 Angina pectoris, unspecified (principal); E78.00 Pure hypercholesterolemia, unspecified; I25.2 Old myocardial infarction; E11.22 Type 2 diabetes mellitus with diabetic chronic kidney disease; I12.9 Hypertensive chronic kidney disease with stage 1 through stage 4 chronic kidney disease, or unspecified chronic kidney disease; N18.3 Chronic kidney disease, stage 3 (moderate); I25.10 Atherosclerotic heart disease of native coronary artery without angina pectoris; E66.9 Obesity, unspecified; Z88.1 Allergy status to other antibiotic agents; Z86.73 Personal history of transient ischemic attack (TIA), and cerebral infarction without residual deficits; Z68.34 Body mass index [BMI] 34.0-34.9, adult; Z79.4 Long term (current) use of insulin; Z79.82 Long term (current) use of aspirin; Z79.899 Other long term (current) drug therapy
CPT/HCPCS: 36415; 71045; 80053; 83880; 84484; 85025; 85610; 93005; 99283; 99285-25

== ENCOUNTER 2020-03-08 16:18 | Emergency (ER) | payer MEDICARE, BC ==
[2020-03-08] MEDS ORDERED: Aspirin 81 MG Tab.Chew PO ONE (16:34)
[2020-03-08 16:55] VITALS: BP 151/71; PULSE 57
--- NOTE | 2020-03-08 17:31 | EDM.PDOC ---
ED HPI GENERAL MEDICAL PROBLEM - General Chief Complaint: Chest Pain Stated Complaint: CHEST PAINS Time Seen by Provider: 03/08/20 17:20 Source of Information: Reports: Patient History Limitations: Reports: No Limitations - History of Present Illness INITIAL COMMENTS - FREE TEXT/NARRATIVE: This 69 yo male patient reports to the ED with chest pain. The patient reports his chest pain started today at about 1400 and went away after her reported to the ED. The patient reports he has had a history of intermittent chest pains. The patient reports he has had similar episodes that resolved after he urinated or had a bowel movement. Onset: Today Onset Date: 03/08/20 Onset Time: 14:00 Duration: Resolved Prior to Arrival Location: Reports: Chest Quality: Reports: Ache, Sharp Severity: Moderate Improves with: Reports: None Worsens with: Reports: None Context: Reports: Other Associated Symptoms: Reports: Chest Pain Chest Pain Score (Numeric/FACES): 4 - Related Data Allergies Allergy/AdvReac Type Severity Reaction Status Date / Time cephalexin Allergy Anaphylactic Verified 03/08/20 16:55 Shock Home Meds: Home Meds Aspirin [Halfprin] 81 mg PO DAILY 07/24/16 [History] Furosemide [Lasix] 20 mg PO BID 07/24/16 [History] Insulin Aspart [NovoLOG] 10 units SQ TIDMEALS 07/24/16 [History] Insulin Detemir [Levemir Flextouch] 80 units SQ BEDTIME 07/24/16 [History] Isosorbide Mononitrate [Imdur] 60 mg PO BID 07/24/16 [History] Nitroglycerin [Nitrostat] 0.4 mg SL ASDIRECTED 07/24/16 [History] amLODIPine [Norvasc] 5 mg PO DAILY 07/24/16 [History] atorvaSTATin [Lipitor] 40 mg PO BEDTIME 07/24/16 [History] Clopidogrel [Plavix] 75 mg PO DAILY 10/08/17 [History] Metoprolol Succinate [Toprol Xl] 100 mg PO DAILY 10/08/17 [History] Chlorthalidone 25 mg PO DAILY 06/29/18 [History] cloNIDine HCL [Catapres] 0.2 mg PO TID 06/29/18 [History] Patiromer Calcium Sorbitex [Veltassa] 8.4 gm PO DAILY 10/17/18 [History] Past Medical History HEENT History: Reports: Cataract, Impaired Vision Other HEENT History: right and left eye. 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 Psychiatric History: Reports: None Endocrine/Metabolic History: Reports: Diabetes, Type II, Obesity/BMI 30+ Hematologic History: Reports: None Immunologic History: Reports: None Oncologic (Cancer) History: Reports: None Dermatologic History: Reports: None - Infectious Disease History Infectious Disease History: Reports: Chicken Pox, Measles, Shingles - Past Surgical History Head Surgeries/Procedures: Reports: None HEENT Surgical History: Reports: Adenoidectomy, Cataract Surgery, Tonsillectomy, Other (See Below) Other HEENT Surgeries/Procedures: esophageal monometry Cardiovascular Surgical History: Reports: Coronary Artery Bypass, Coronary Artery Stent, Other (See Below) Other Cardiovascular Surgeries/Procedures: Implantable cardiverter defibrillator in place GI Surgical History: Reports: Appendectomy, Cholecystectomy, Colonoscopy, EGD Male Surgical History: Reports: None Neurological Surgical History: Reports: None Musculoskeletal Surgical History: Reports: None Social & Family History - Family History Family Medical History: No Pertinent Family History - Tobacco Use Tobacco Use Status *Q: Never Tobacco User Second Hand Smoke Exposure: No - Caffeine Use Caffeine Use: Reports: None Caffeine Use Comment: 1 can daily - Recreational Drug Use Recreational Drug Use: No ED ROS GENERAL - Review of Systems Review Of Systems: Comprehensive ROS is negative, except as noted in HPI. ED EXAM, GENERAL - Physical Exam Exam: See Below Exam Limited By: No Limitations General Appearance: Alert, WD/WN, Mild Distress, Obese Eye Exam: Bilateral Eye: EOMI, Normal Inspection, PERRL Ears: Normal External Exam, Normal Canal, Hearing Grossly Normal, Normal TMs Nose: Normal Inspection, Normal Mucosa, No Blood Throat/Mouth: Normal Inspection, Normal Lips, Normal Teeth, Normal Gums, Normal Oropharynx, Normal Voice, No Airway Compromise Head: Atraumatic, Normocephalic Neck: Normal Inspection, Supple, Non-Tender, Full Range of Motion Respiratory/Chest: No Respiratory Distress, Lungs Clear, Normal Breath Sounds, No Accessory Muscle Use, Chest Non-Tender Cardiovascular: Normal Peripheral Pulses, Regular Rate, Rhythm, No Edema, No Gallop, No JVD, No Murmur, No Rub GI/Abdominal: Normal Bowel Sounds, Soft, Non-Tender, No Organomegaly, No Distention, No Abnormal Bruit, No Mass (Male) Exam: Deferred Rectal (Males) Exam: Deferred Back Exam: Normal Inspection, Full Range of Motion, NT Extremities: Normal Inspection, Normal Range of Motion, Non-Tender, Normal Capillary Refill, No Pedal Edema Neurological: Alert, Oriented, CN II-XII Intact, Normal Cognition, Normal Gait, Normal Reflexes, No Motor/Sensory Deficits Psychiatric: Normal Affect, Normal Mood Skin Exam: Warm, Dry, Intact, Normal Color, No Rash Lymphatic: No Adenopathy Course - Vital Signs Last Recorded V/S: Last Vital Signs Temp 36.9 C 03/08/20 16:52 Pulse 57 L 03/08/20 16:52 Resp 16 03/08/20 16:52 BP 151/71 H 03/08/20 16:52 Pulse Ox 99 03/08/20 16:52 - Orders/Labs/Meds Orders: Active Orders 24 hr Category Date Time Status EKG 12 Lead [EKG Documentation Completion] [RC] URGENT Care 03/08/20 17:00 Active Chest 1V Frontal [CR] Urgent Exams 03/08/20 17:52 Taken Labs: Laboratory Tests 03/08/20 03/08/20 03/08/20 Range/Units 16:49 16:49 16:49 WBC 4.6 L (5.0-10.0) 10^3/uL RBC 3.61 L (4.6-6.2) 10^6/uL Hgb 11.3 L (14.0-18.0) g/dL Hct 32.1 L (40.0-54.0) % MCV 88.9 (80-100) fL MCH 31.3 (27.0-34.0) pg MCHC 35.2 H (33.0-35.0) g/dL Plt Count 164 (150-450) 10^3/uL Neut % (Auto) 56.5 (42.2-75.2) % Lymph % (Auto) 20.0 L (20.5-50.1) % [place] % (Auto) 16.2 H (2-8) % Eos % (Auto) 7.1 H (1.0-3.0) % Baso % (Auto) 0.2 (0.0-1.0) % D-Dimer, Quantitative 362 (0-400) ng/mL Sodium 138 (136-145) mmol/L Potassium 4.4 (3.5-5.1) mmol/L Chloride 102 (98-107) mmol/L Carbon Dioxide 27 (21-32) mmol/L Anion Gap 13.4 H (7-13) mEq/L BUN 33 H (7-18) mg/dL Creatinine 2.14 H (0.70-1.30) mg/dL Est Cr Clr Drug Dosing 33.04 mL/min Estimated GFR (MDRD) 31 BUN/Creatinine Ratio 15.4 (No establ ref range) Glucose 100 H (74-99) mg/dL Calcium 8.8 (8.5-10.1) mg/dL Total Bilirubin 0.5 (0.2-1.0) mg/dL AST 26 (15-37) U/L ALT 36 (16-63) U/L Alkaline Phosphatase 97 (46-116) U/L Troponin I < 0.017 (0.000-0.056) ng/mL Total Protein 6.8 (6.4-8.2) g/dL Albumin 3.4 (3.4-5.0) g/dL Globulin 3.4 Albumin/Globulin Ratio 1.0 Meds: Medications Discontinued Medications Generic Name Dose Route Start Last Admin Trade Name Freq PRN Reason Stop Dose Admin Aspirin 324 mg 03/08/20 16:34 03/08/20 16:50 Aspirin PO 03/08/20 16:35 324 mg ONETIME ONE Administration Departure - Departure Time of Disposition: 18:17 Disposition: Home, Self-Care 01 Condition: Fair Clinical Impression: Nonspecific chest pain Instructions: Nonspecific Chest Pain, Adult, [id number] Forms: ED Department Discharge Care Plan Goals: The patient was advised of the examination, lab, EKG and x-ray results during the visit. The patient was encouraged to continue to monitor for any additional symptoms or concerns. The patient should follow-up with his primary care facility for continued evaluation and management. If the patient has any additional symptoms or concerns, the patient was encouraged to either return to the emergency department or visit his primary care facility. Sepsis Event Note (ED) - Evaluation Sepsis Screening Result: No Definite Risk - Focused Exam Vital Signs: Vital Signs Temp Pulse Resp BP Pulse Ox 03/08/20 16:52 36.9 C 57 L 16 151/71 H 99 - My Orders Last 24 Hours: My Active Orders 03/08/20 17:00 EKG 12 Lead [EKG Documentation Completion] [RC] URGENT 03/08/20 17:52 Chest 1V Frontal [CR] Urgent - Assessment/Plan Last 24 Hours: My Active Orders 03/08/20 17:00 EKG 12 Lead [EKG Documentation Completion] [RC] URGENT 03/08/20 17:52 Chest 1V Frontal [CR] Urgent
[2020-03-08 17:37] LABS: ANION GAP 13.4 mEq/L (7-13); CHLORIDE,CL 102 mmol/L (98-107); SODIUM,NA 138 mmol/L (136-145)
--- NOTE | 2020-03-08 18:30 | CR ---
PROCEDURE INFORMATION: Exam: XR Chest, 1 View Exam date and time: 03/08/2020 6:08 PM Age: 69 years old Clinical indication: Chest pain; Type not specified TECHNIQUE: Imaging protocol: XR of the chest Views: 1 view. COMPARISON: CR Chest 1V Frontal 05/20/2019 1:12 AM FINDINGS: Lungs: Unremarkable. No consolidation. Pleural space: Unremarkable. No pleural effusion. No pneumothorax. Heart/Mediastinum: Heart enlarged. Median sternotomy sutures. Indwelling pacemaker with single chamber lead wire. Bones/joints: Unremarkable. IMPRESSION: Stable cardiomegaly with indwelling pacemaker. Post thoracotomy. No change from previous study. No acute findings
== END 2020-03-08 18:25 | disposition home or self-care (01) ==
LOC: DL.ED 16:18
DX: R07.9 Chest pain, unspecified (principal); I25.10 Atherosclerotic heart disease of native coronary artery without angina pectoris; E78.00 Pure hypercholesterolemia, unspecified; I12.9 Hypertensive chronic kidney disease with stage 1 through stage 4 chronic kidney disease, or unspecified chronic kidney disease; N18.30 Chronic kidney disease, stage 3 unspecified; E11.22 Type 2 diabetes mellitus with diabetic chronic kidney disease; I25.2 Old myocardial infarction; E66.9 Obesity, unspecified; Z68.36 Body mass index [BMI] 36.0-36.9, adult; Z88.1 Allergy status to other antibiotic agents; Z79.82 Long term (current) use of aspirin; Z79.4 Long term (current) use of insulin; Z79.02 Long term (current) use of antithrombotics/antiplatelets; Z79.899 Other long term (current) drug therapy; Z95.1 Presence of aortocoronary bypass graft; Z86.73 Personal history of transient ischemic attack (TIA), and cerebral infarction without residual deficits
CPT/HCPCS: 36415; 71045; 80053; 84484; 85025; 85379; 93005; 99283; 99285; A9270

== ENCOUNTER 2020-08-28 22:59 | Emergency (ER) | payer MEDICARE, BC ==
[2020-08-28] MEDS ORDERED: Aspirin 81 MG Tab.Chew ONE (23:04)
--- NOTE | 2020-08-28 23:08 | EDM.PDOC ---
ED HPI GENERAL MEDICAL PROBLEM - General Chief Complaint: Chest Pain Stated Complaint: CHEST PAIN,NUMBNESS LEFT ARM Time Seen by Provider: 08/28/20 23:08 Source of Information: Reports: Patient, RN, RN Notes Reviewed History Limitations: Reports: No Limitations - History of Present Illness INITIAL COMMENTS - FREE TEXT/NARRATIVE: Patient is a 70-year-old male who presents to ER with complaint of numbness of the left arm and dull chest pains. He states the numbness of the left arm began this afternoon, with chest pains beginning approximately an hour ago on his way into the ER. He states that he gets numbness of the left arm frequently, but it really does not stay around too long, today it stayed much longer than usual. Patient has significant cardiac history, including bypass and stents placed. In December patient was here with similar complaints. He was sent to [facility], and angiogram was done, no stents placed at that time. Patient denies any radiation of the pain into the shoulder, back, neck or jaw. Patient states he took 1 nitro and the pain is improved, as well as the numbness in the left arm. Patient denies any recent illness. Denies ever having Covid, and states he has been vaccinated for Covid. Onset: Today, Sudden Duration: Constant, Improving Location: Reports: Chest, Upper Extremity, Left Quality: Reports: Ache Severity: Mild - Related Data Allergies Allergy/AdvReac Type Severity Reaction Status Date / Time cephalexin Allergy Anaphylactic Verified 08/28/20 23:11 Shock Home Meds: Home Meds Aspirin [Halfprin] 81 mg PO DAILY 07/24/16 [History] Furosemide [Lasix] 40 mg PO DAILY 07/24/16 [History] Insulin Aspart [NovoLOG] 10 units SQ TIDMEALS 07/24/16 [History] Isosorbide Mononitrate [Imdur] 60 mg PO BID 07/24/16 [History] Nitroglycerin [Nitrostat] 0.4 mg SL ASDIRECTED 07/24/16 [History] amLODIPine [Norvasc] 10 mg PO DAILY 07/24/16 [History] atorvaSTATin [Lipitor] 80 mg PO BEDTIME 07/24/16 [History] Clopidogrel [Plavix] 75 mg PO DAILY 10/08/17 [History] Chlorthalidone 25 mg PO DAILY 06/29/18 [History] cloNIDine HCL [Catapres] 0.2 mg PO TID 06/29/18 [History] Insulin Glargine,Hum.Rec.Anlog [Basaglar Kwikpen U-100] 0 units SQ ASDIRECTED 08/29/20 [History] Losartan [Cozaar] 25 mg PO DAILY 08/29/20 [History] Pantoprazole Sodium [Protonix] 40 mg PO DAILY 08/29/20 [History] Sodium Zirconium Cyclosilicate [Lokelma] 10 gm PO DAILY 08/29/20 [History] carvediloL [Carvedilol] 50 mg PO DAILY 08/29/20 [History] Past Medical History HEENT History: Reports: Cataract, Impaired Vision Other HEENT History: right and left eye. 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 Psychiatric History: Reports: None Endocrine/Metabolic History: Reports: Diabetes, Type II, Obesity/BMI 30+ Hematologic History: Reports: None Immunologic History: Reports: None Oncologic (Cancer) History: Reports: None Dermatologic History: Reports: None - Infectious Disease History Infectious Disease History: Reports: Chicken Pox, Measles, Shingles - Past Surgical History Head Surgeries/Procedures: Reports: None HEENT Surgical History: Reports: Adenoidectomy, Cataract Surgery, Tonsillectomy, Other (See Below) Other HEENT Surgeries/Procedures: esophageal monometry Cardiovascular Surgical History: Reports: Coronary Artery Bypass, Coronary Artery Stent, Other (See Below) Other Cardiovascular Surgeries/Procedures: Implantable cardiverter defibrillator in place GI Surgical History: Reports: Appendectomy, Cholecystectomy, Colonoscopy, EGD Male Surgical History: Reports: None Neurological Surgical History: Reports: None Musculoskeletal Surgical History: Reports: None Social & Family History - Family History Family Medical History: No Pertinent Family History - Caffeine Use Caffeine Use: Reports: None Caffeine Use Comment: 1 can daily ED ROS GENERAL - Review of Systems Review Of Systems: Comprehensive ROS is negative, except as noted in HPI. ED EXAM, GENERAL - Physical Exam Exam: See Below Exam Limited By: No Limitations General Appearance: Alert, WD/WN, No Apparent Distress Eye Exam: Bilateral Eye: EOMI, Normal Inspection Ears: Normal External Exam, Hearing Grossly Normal Nose: Normal Inspection Throat/Mouth: Normal Inspection, Normal Voice, No Airway Compromise Head: Atraumatic, Normocephalic Neck: Normal Inspection, Supple, Non-Tender, Full Range of Motion Cardiovascular: Normal Peripheral Pulses, Regular Rate, Rhythm, No Edema, No Gallop, No JVD, No Murmur, No Rub Peripheral Pulses: 2+: Radial (L), Radial (R) GI/Abdominal: Normal Bowel Sounds, Soft, Non-Tender (Male) Exam: Deferred Rectal (Males) Exam: Deferred Back Exam: Normal Inspection, Full Range of Motion, NT Extremities: Normal Inspection, Normal Range of Motion, Non-Tender, Normal Capillary Refill, No Pedal Edema Neurological: Alert, Oriented, CN II-XII Intact, Normal Cognition, Normal Gait, Normal Reflexes, No Motor/Sensory Deficits Psychiatric: Normal Affect, Normal Mood Skin Exam: Warm, Dry, Intact, Normal Color, No Rash Lymphatic: No Adenopathy #1 Interpretation EKG Date: 08/28/20 Time: 23:05 Rhythm: NSR Rate (Beats/Min): 59 [place]: Normal P-Wave: Present QRS: Normal ST-T: Normal QT: Prolonged Comparison: Change From Previous EKG #2 Interpretation EKG Date: 08/29/20 Time: 03:07 Rhythm: Other (Sinus bradycardia) Rate (Beats/Min): 55 [place]: Normal P-Wave: Present QRS: Normal ST-T: Normal QT: Normal WV/PQ Interval: First degree AV block Comparison: Change From Previous EKG Course - Vital Signs Last Recorded V/S: Last Vital Signs Temp 98.8 F 08/29/20 00:25 Pulse 51 L 08/29/20 02:05 Resp 20 08/29/20 00:25 BP 127/54 L 08/29/20 02:05 Pulse Ox 90 L 08/29/20 02:05 - Orders/Labs/Meds Orders: Active Orders 24 hr Category Date Time Status EKG Documentation Completion [RC] STAT Care 08/28/20 23:07 Active EKG Documentation Completion [RC] STAT Care 08/29/20 03:15 Active Sodium Chloride 0.9% [Normal Saline] 1,000 ml Med 08/28/20 23:56 Active IV .BOLUS Medication Orders Sodium Chloride (Normal Saline) 1,000 mls @ 100 mls/hr IV .BOLUS ONE Stop: 08/29/20 09:55 Last Admin: 08/28/20 23:58 Dose: 100 mls/hr Documented by: DENISE Labs: Laboratory Tests 08/28/20 08/28/20 08/28/20 Range/Units 23:18 23:18 23:18 WBC 4.9 L (5.0-10.0) 10^3/uL RBC 3.93 L (4.6-6.2) 10^6/uL Hgb 11.9 L (14.0-18.0) g/dL Hct 34.7 L (40.0-54.0) % MCV 88.3 (80-100) fL MCH 30.3 (27.0-34.0) pg MCHC 34.3 (33.0-35.0) g/dL Plt Count 193 (150-450) 10^3/uL Neut % (Auto) 57.4 (42.2-75.2) % Lymph % (Auto) 20.3 L (20.5-50.1) % [place] % (Auto) 15.8 H (2-8) % Eos % (Auto) 5.9 H (1.0-3.0) % Baso % (Auto) 0.6 (0.0-1.0) % PT (9.0-12.0) SEC INR (0.9-1.2) Sodium 136 (136-145) mmol/L Potassium 4.1 (3.5-5.1) mmol/L Chloride 100 (98-107) mmol/L Carbon Dioxide 26 (21-32) mmol/L Anion Gap 14.1 H (7-13) mEq/L BUN 50 H (7-18) mg/dL Creatinine 2.70 H (0.70-1.30) mg/dL Est Cr Clr Drug Dosing TNP Estimated GFR (MDRD) 24 BUN/Creatinine Ratio 18.5 (No establ ref range) Glucose 216 H (70-99) mg/dL Calcium 8.5 (8.5-10.1) mg/dL Total Bilirubin 0.6 (0.2-1.0) mg/dL AST 27 (15-37) U/L ALT 39 (16-63) U/L Alkaline Phosphatase 107 (46-116) U/L Creatine Kinase 110 (39-308) U/L Creatine Kinase Index 1.4 (0-2.4) % CK-MB (CK-2) 1.5 (0.0-3.6) ng/mL Troponin I < 0.017 (0.000-0.056) ng/mL B-Natriuretic Peptide 126 H (0-100) pg/ml Total Protein 7.3 (6.4-8.2) g/dL Albumin 3.7 (3.4-5.0) g/dL Globulin 3.6 Albumin/Globulin Ratio 1.0 08/28/20 08/29/20 Range/Units 23:18 03:32 WBC (5.0-10.0) 10^3/uL RBC (4.6-6.2) 10^6/uL Hgb (14.0-18.0) g/dL Hct (40.0-54.0) % MCV (80-100) fL MCH (27.0-34.0) pg MCHC (33.0-35.0) g/dL Plt Count (150-450) 10^3/uL Neut % (Auto) (42.2-75.2) % Lymph % (Auto) (20.5-50.1) % [place] % (Auto) (2-8) % Eos % (Auto) (1.0-3.0) % Baso % (Auto) (0.0-1.0) % PT 10.4 (9.0-12.0) SEC INR 1.0 (0.9-1.2) Sodium (136-145) mmol/L Potassium (3.5-5.1) mmol/L Chloride (98-107) mmol/L Carbon Dioxide (21-32) mmol/L Anion Gap (7-13) mEq/L BUN (7-18) mg/dL Creatinine (0.70-1.30) mg/dL Est Cr Clr Drug Dosing Estimated GFR (MDRD) BUN/Creatinine Ratio (No establ ref range) Glucose (70-99) mg/dL Calcium (8.5-10.1) mg/dL Total Bilirubin (0.2-1.0) mg/dL AST (15-37) U/L ALT (16-63) U/L Alkaline Phosphatase (46-116) U/L Creatine Kinase (39-308) U/L Creatine Kinase Index (0-2.4) % CK-MB (CK-2) (0.0-3.6) ng/mL Troponin I < 0.017 (0.000-0.056) ng/mL B-Natriuretic Peptide (0-100) pg/ml Total Protein (6.4-8.2) g/dL Albumin (3.4-5.0) g/dL Globulin Albumin/Globulin Ratio Meds: Medications Generic Name Dose Route Start Last Admin Trade Name Freq PRN Reason Stop Dose Admin Sodium Chloride 1,000 mls @ 100 mls/hr 08/28/20 23:56 08/28/20 23:58 Normal Saline IV 08/29/20 09:55 100 mls/hr .BOLUS ONE Administration Discontinued Medications Generic Name Dose Route Start Last Admin Trade Name Freq PRN Reason Stop Dose Admin Aspirin Confirm 08/28/20 23:04 08/28/20 23:16 Aspirin 81 Mg Tab.Chew Administered 08/28/20 23:05 324 mg Dose Administration 324 mg .ROUTE .STK-MED ONE Aspirin 324 mg 08/28/20 23:10 08/28/20 23:18 Aspirin 81 Mg Tab.Chew PO 08/28/20 23:11 Not Given ONETIME ONE - Radiology Interpretation Free Text/Narrative:: Chest xray: PROCEDURE INFORMATION: Exam: XR Chest Exam date and time: 08/28/2020 11:21 PM Age: 70 years old Clinical indication: Other: Chest pain TECHNIQUE: Imaging protocol: XR of the chest. Views: 1 view. COMPARISON: CR Chest 1V Frontal 03/08/2020 6:08 PM FINDINGS: Tubes, catheters and devices: A left-sided AICD is present. Lungs: Unremarkable. No consolidation. Pleural spaces: Unremarkable. No pleural effusion. No pneumothorax. Heart/Mediastinum: Heart size is minimally prominent with postoperative change from prior cardiac surgery. Bones/joints: Unremarkable. IMPRESSION: Postoperative change without acute cardiopulmonary disease identified. Thank you for allowing us to participate in the care of your patient. Dictated and Authenticated by: Demetrius Rubio MD 08/28/2020 11:42 PM Central Time ([place] & [place]) See rad report - Re-Assessments/Exams Free Text/Narrative Re-Assessment/Exam: 08/29/20 00:19 Patient placed on the medical floor for extended ER. Labs will be repeated at 0315. 08/29/20 04:09 Second EKG and troponin are unchanged. This was discussed with the patient. Patient will be discharged home and highly encouraged to follow up with his on air director. Departure - Departure Time of Disposition: 04:10 Disposition: Home, Self-Care 01 Reason for Transfer *Q: Other Condition: Fair Clinical Impression: Angina at rest Instructions: Angina, [id number] Forms: ED Department Discharge Additional Instructions: Follow up with your Assistant Clinical Director Return to the ER with any worsening of symptoms Sepsis Event Note (ED) - Focused Exam Vital Signs: Vital Signs Temp Pulse Resp BP BP Pulse Ox 08/29/20 02:05 51 L 127/54 L 90 L 08/29/20 01:32 53 L 141/51 H 96 08/29/20 01:04 54 L 130/52 L 96 08/29/20 00:25 98.8 F 53 L 20 147/59 H 98 08/28/20 23:12 98 F 60 17 143/65 H 98 - My Orders Last 24 Hours: My Active Orders 08/28/20 23:07 EKG Documentation Completion [RC] STAT 08/28/20 23:56 Sodium Chloride 0.9% [Normal Saline] 1,000 ml IV .BOLUS 08/29/20 03:15 EKG Documentation Completion [RC] STAT - Assessment/Plan Last 24 Hours: My Active Orders 08/28/20 23:07 EKG Documentation Completion [RC] STAT 08/28/20 23:56 Sodium Chloride 0.9% [Normal Saline] 1,000 ml IV .BOLUS 08/29/20 03:15 EKG Documentation Completion [RC] STAT
[2020-08-28] MEDS ORDERED: Aspirin 81 MG Tab.Chew PO ONE (23:10)
--- NOTE | 2020-08-28 23:43 | CR ---
PROCEDURE INFORMATION: Exam: XR Chest Exam date and time: 08/28/2020 11:21 PM Age: 70 years old Clinical indication: Other: Chest pain TECHNIQUE: Imaging protocol: XR of the chest. Views: 1 view. COMPARISON: CR Chest 1V Frontal 03/08/2020 6:08 PM FINDINGS: Tubes, catheters and devices: A left-sided AICD is present. Lungs: Unremarkable. No consolidation. Pleural spaces: Unremarkable. No pleural effusion. No pneumothorax. Heart/Mediastinum: Heart size is minimally prominent with postoperative change from prior cardiac surgery. Bones/joints: Unremarkable. IMPRESSION: Postoperative change without acute cardiopulmonary disease identified.
[2020-08-28 23:45] LABS: ANION GAP 14.1 mEq/L (7-13); CHLORIDE,CL 100 mmol/L (98-107); SODIUM,NA 136 mmol/L (136-145)
[2020-08-28] MEDS ORDERED: Sodium Chloride 0.9% 1,000 ML IV ONE (23:56)
[2020-08-29 02:06] VITALS: BP 127/54; PULSE 51
== END 2020-08-29 04:45 | disposition home or self-care (01) ==
LOC: DL.ED 22:59
DX: I20.9 Angina pectoris, unspecified (principal); I25.2 Old myocardial infarction; E11.9 Type 2 diabetes mellitus without complications; E78.00 Pure hypercholesterolemia, unspecified; I10 Essential (primary) hypertension; E66.9 Obesity, unspecified; Z95.0 Presence of cardiac pacemaker; Z88.1 Allergy status to other antibiotic agents; Z68.30 Body mass index [BMI] 30.0-30.9, adult; Z79.82 Long term (current) use of aspirin; Z79.02 Long term (current) use of antithrombotics/antiplatelets; Z79.899 Other long term (current) drug therapy; Z79.4 Long term (current) use of insulin
CPT/HCPCS: 36415; 71045; 80053; 82550; 82553; 83880; 84484; 85025; 85610; 93005; 93010; 99284; 99285-25; A9270-GY; J7030

== ENCOUNTER 2020-09-11 18:07 | Emergency (ER) | payer MEDICARE, BC ==
[2020-09-11] MEDS ORDERED: Sodium Chloride 0.9% 10 ML Syringe FLUSH PRN (18:32)
[2020-09-11] MEDS ORDERED: Nitroglycerin 0.4 MG Tab.SL SL ONE (18:34)
[2020-09-11] MEDS ORDERED: Aspirin 81 MG Tab.Chew PO ONE (18:34)
[2020-09-11 18:44] VITALS: PULSE 56
[2020-09-11 18:52] VITALS: BP 145/57
[2020-09-11 19:12] LABS: ANION GAP 12.1 mEq/L (7-13); CHLORIDE,CL 105 mmol/L (98-107); SODIUM,NA 140 mmol/L (136-145)
--- NOTE | 2020-09-11 19:24 | CR ---
PROCEDURE INFORMATION: Exam: XR Chest Exam date and time: 09/11/2020 6:43 PM Age: 70 years old Clinical indication: Shortness of breath and other: Chest pain; Additional info: Cp JAZMNIE TECHNIQUE: Imaging protocol: XR of the chest. Views: 2 views. COMPARISON: CR Chest 1V Frontal 08/28/2020 11:21 PM FINDINGS: Tubes, catheters and devices: Multiple median sternotomy sutures. Lungs: Unremarkable. No consolidation. Pleural spaces: Unremarkable. No pleural effusion. No pneumothorax. Heart/Mediastinum: Borderline cardiomegaly. Indwelling pacemaker with single chamber electrodes. Bones/joints: Unremarkable. IMPRESSION: No acute findings. No change from previous study.
--- NOTE | 2020-09-11 20:13 | EDM.PDOC ---
Scribed by Ania Mejias 09/11/20 2427 for Hu Boyer NP ED HPI GENERAL MEDICAL PROBLEM - General Chief Complaint: Chest Pain Stated Complaint: CHEST PAINS ALL DAY. Time Seen by Provider: 09/11/20 18:30 Source of Information: Reports: Patient, RN, RN Notes Reviewed History Limitations: Reports: No Limitations - History of Present Illness INITIAL COMMENTS - FREE TEXT/NARRATIVE: Patient comes emergency department today with complaints of chest pain. This patient relates that since about 5:00 this morning he has had intermittent right anterolateral chest pain. Feels like a heaviness that goes from his chest into his back. He is not had any shortness of breath or diaphoresis with this. He has had no nausea or vomiting. No palpitations weakness dizziness lightheadedness. No syncope. He has had no fever no chills. No cough or congestion. No abdominal pain nausea or vomiting. No diaphoresis. No hematuria dysuria or urinary frequency. No black or tarry stools. This is a patient with a pretty extensive coronary artery disease past history. He has had multiple stents as well as a CABG. He did take 1 nitroglycerin this morning with resolution of the pain but it came back multiple hours later. He has had pain prior to arrival for over 5 hours. He does not take any extra aspirin. Nor has he taken any more nitro. He has not seen his nuclear monitoring technician in almost 2 years. He is to see his school traffic guard next week and his family practice in 2 weeks. - Related Data Allergies Allergy/AdvReac Type Severity Reaction Status Date / Time cephalexin Allergy Anaphylactic Verified 08/28/20 23:11 Shock Home Meds: Home Meds Aspirin [Halfprin] 81 mg PO DAILY 07/24/16 [History] Furosemide [Lasix] 40 mg PO DAILY 07/24/16 [History] Insulin Aspart [NovoLOG] 10 units SQ TIDMEALS 07/24/16 [History] Isosorbide Mononitrate [Imdur] 60 mg PO BID 07/24/16 [History] Nitroglycerin [Nitrostat] 0.4 mg SL ASDIRECTED 07/24/16 [History] amLODIPine [Norvasc] 10 mg PO DAILY 07/24/16 [History] atorvaSTATin [Lipitor] 80 mg PO BEDTIME 07/24/16 [History] Clopidogrel [Plavix] 75 mg PO DAILY 10/08/17 [History] Chlorthalidone 25 mg PO DAILY 06/29/18 [History] cloNIDine HCL [Catapres] 0.2 mg PO TID 06/29/18 [History] Insulin Glargine,Hum.Rec.Anlog [Basaglar Kwikpen U-100] 0 units SQ ASDIRECTED 08/29/20 [History] Losartan [Cozaar] 25 mg PO DAILY 08/29/20 [History] Pantoprazole Sodium [Protonix] 40 mg PO DAILY 08/29/20 [History] Sodium Zirconium Cyclosilicate [Lokelma] 10 gm PO DAILY 08/29/20 [History] carvediloL [Carvedilol] 50 mg PO DAILY 08/29/20 [History] Past Medical History HEENT History: Reports: Cataract, Impaired Vision Other HEENT History: right and left eye. 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 Psychiatric History: Reports: None Endocrine/Metabolic History: Reports: Diabetes, Type II, Obesity/BMI 30+ Hematologic History: Reports: None Immunologic History: Reports: None Oncologic (Cancer) History: Reports: None Dermatologic History: Reports: None - Infectious Disease History Infectious Disease History: Reports: Chicken Pox, Measles, Shingles - Past Surgical History Head Surgeries/Procedures: Reports: None HEENT Surgical History: Reports: Adenoidectomy, Cataract Surgery, Tonsillectomy, Other (See Below) Other HEENT Surgeries/Procedures: esophageal monometry Cardiovascular Surgical History: Reports: Coronary Artery Bypass, Coronary Artery Stent, Other (See Below) Other Cardiovascular Surgeries/Procedures: Implantable cardiverter defibrillator in place GI Surgical History: Reports: Appendectomy, Cholecystectomy, Colonoscopy, EGD Male Surgical History: Reports: None Neurological Surgical History: Reports: None Musculoskeletal Surgical History: Reports: None Social & Family History - Family History Family Medical History: No Pertinent Family History - Caffeine Use Caffeine Use: Reports: None Caffeine Use Comment: 1 can daily ED ROS GENERAL - Review of Systems Review Of Systems: Comprehensive ROS is negative, except as noted in HPI. ED EXAM, GENERAL - Physical Exam Exam: See Below Exam Limited By: No Limitations General Appearance: Alert, WD/WN, No Apparent Distress Ears: Normal External Exam, Normal TMs Nose: Normal Inspection, Normal Mucosa, No Blood Throat/Mouth: Normal Inspection, Normal Lips, Normal Teeth, Normal Gums, Normal Oropharynx, Normal Voice, No Airway Compromise Head: Atraumatic, Normocephalic Neck: Normal Inspection, Supple, Non-Tender, Full Range of Motion Respiratory/Chest: No Respiratory Distress, Lungs Clear, Normal Breath Sounds, No Accessory Muscle Use, Chest Non-Tender Cardiovascular: Normal Peripheral Pulses, Regular Rate, Rhythm, No Edema, No Murmur Peripheral Pulses: 2+: Radial (L), Radial (R), Posterior Tibial (L), Posterior Tibial (R), Dorsalis Pedis (L), Dorsalis Pedis (R) GI/Abdominal: Normal Bowel Sounds, Soft, Non-Tender, No Abnormal Bruit (Male) Exam: Deferred Rectal (Males) Exam: Deferred Back Exam: Normal Inspection, Full Range of Motion Extremities: Normal Inspection, Normal Range of Motion, Non-Tender, No Pedal Edema, Normal Capillary Refill Neurological: Alert, Oriented, CN II-XII Intact, Normal Cognition, Normal Gait, No Motor/Sensory Deficits Psychiatric: Normal Affect, Normal Mood Skin Exam: Warm, Dry, Intact, Normal Color, No Rash Lymphatic: No Adenopathy Course - Vital Signs Last Recorded V/S: Last Vital Signs Temp 97.2 F 09/11/20 18:20 Pulse 56 L 09/11/20 18:20 Resp 16 09/11/20 18:20 BP 145/57 H 09/11/20 18:51 Pulse Ox 99 09/11/20 18:20 - Orders/Labs/Meds Orders: Active Orders 24 hr Category Date Time Status Peripheral IV Insertion Adult [OM.PC] Stat Oth 09/11/20 18:32 Ordered Labs: Laboratory Tests 09/11/20 09/11/20 Range/Units 18:31 18:31 WBC 5.7 (5.0-10.0) 10^3/uL RBC 3.78 L (4.6-6.2) 10^6/uL Hgb 11.4 L (14.0-18.0) g/dL Hct 33.5 L (40.0-54.0) % MCV 88.6 (80-100) fL MCH 30.2 (27.0-34.0) pg MCHC 34.0 (33.0-35.0) g/dL Plt Count 168 (150-450) 10^3/uL Neut % (Auto) 62.7 (42.2-75.2) % Lymph % (Auto) 17.9 L (20.5-50.1) % [place] % (Auto) 13.4 H (2-8) % Eos % (Auto) 5.8 H (1.0-3.0) % Baso % (Auto) 0.2 (0.0-1.0) % Sodium 140 (136-145) mmol/L Potassium 4.1 (3.5-5.1) mmol/L Chloride 105 (98-107) mmol/L Carbon Dioxide 27 (21-32) mmol/L Anion Gap 12.1 (7-13) mEq/L BUN 31 H (7-18) mg/dL Creatinine 2.08 H (0.70-1.30) mg/dL Est Cr Clr Drug Dosing TNP Estimated GFR (MDRD) 32 BUN/Creatinine Ratio 14.9 (No establ ref range) Glucose 151 H (70-99) mg/dL Calcium 8.7 (8.5-10.1) mg/dL Total Bilirubin 0.6 (0.2-1.0) mg/dL AST 25 (15-37) U/L ALT 41 (16-63) U/L Alkaline Phosphatase 105 (46-116) U/L Troponin I < 0.017 (0.000-0.056) ng/mL B-Natriuretic Peptide 449 H (0-100) pg/ml Total Protein 6.9 (6.4-8.2) g/dL Albumin 3.5 (3.4-5.0) g/dL Globulin 3.4 Albumin/Globulin Ratio 1.0 Meds: Medications Discontinued Medications Generic Name Dose Route Start Last Admin Trade Name Freq PRN Reason Stop Dose Admin Aspirin 324 mg 09/11/20 18:34 09/11/20 18:51 Aspirin 81 Mg Tab.Chew PO 09/11/20 18:35 324 mg ONETIME ONE Administration Nitroglycerin 0.4 mg 09/11/20 18:34 09/11/20 18:51 Nitroglycerin 0.4 Mg Tab.Sl SL 09/11/20 18:35 0.4 mg ONETIME ONE Administration Sodium Chloride 10 ml 09/11/20 18:32 09/11/20 19:27 Sodium Chloride 0.9% 10 Ml Syringe FLUSH 10 ml ASDIRECTED PRN Administration Keep Vein Open - Radiology Interpretation Free Text/Narrative:: Chest x-ray per radiology shows no acute findings. No change from previous study - Re-Assessments/Exams Free Text/Narrative Re-Assessment/Exam: EKG initially reviewed extemporaneously by myself did not show any ST elevation or depression when reviewed by myself. No changes from previously. 3.4 of aspirin given orally. 1 sublingual nitro with complete resolution of the patient's symptoms. He does relate that this does not feel like his typical angina but it did resolve after the nitro. He has not had any angina for 2 weeks prior to that was about 4 to 5 months. Laboratory evaluation with a creatinine at 2.08 and a BUN of 31 about baseline. His troponin less than 0.017. His proBNP is 449 although he has no crackles in his lung feliz and his chest x-ray is unremarkable. Patient rested comfortably in the emergency department was monitored closely over the next hour or so. He had no recurrence of his chest pain. Feels quite a bit better and he would like to go home. I think that that is appropriate at this time as his troponin is negative and he does have pain most of the day. Although I do have concerns with his increasing incidence of angina. Would like him to contact his nuclear monitoring technician on Sunday and make sure that he can follow-up sooner rather than later. If he has any chest pain that has not resolved with nitro he has crescendoing anginal type symptoms or frequency he needs to be evaluated sooner. He is comfortable with this plan his questions are answered. Departure - Departure Time of Disposition: 20:17 Disposition: Home, Self-Care 01 Clinical Impression: Angina at rest Instructions: Angina, [id number] Forms: ED Department Discharge Additional Instructions: Continue with your previous therapies. Use your nitro, 1 tablet every 5 minutes for a total of 3 tabs. If pain does not resolve then be seen in the ED. CONTACT YOUR INTEGRATED LOGISTICS PROGRAMS DIRECTOR ON sunday and need follow up REMBERTO with the escalation of symptoms. Return to the ED if new or worsening symptoms. Sepsis Event Note (ED) - Focused Exam Vital Signs: Vital Signs Temp Pulse Resp BP BP Pulse Ox 09/11/20 18:51 145/57 H 09/11/20 18:20 97.2 F 56 L 16 166/59 H 99 - My Orders Last 24 Hours: My Active Orders 09/11/20 18:32 Peripheral IV Insertion Adult [OM.PC] Stat - Assessment/Plan Last 24 Hours: My Active Orders 09/11/20 18:32 Peripheral IV Insertion Adult [OM.PC] Stat I have read and agree with the documentation that has been completed regarding this visit. By signing this record, I attest that the documentation was completed in my physical presence and is an accurate record of the encounter.
--- NOTE | 2020-09-11 22:19 | PCM.EKG ---
#1 Interpretation EKG Date: 09/11/20 Time: 18:12 Rhythm: NSR Rate (Beats/Min): 57 [place]: Normal P-Wave: Present QRS: Normal ST-T: Normal QT: Normal Comparison: No Change
== END 2020-09-11 20:25 | disposition home or self-care (01) ==
LOC: DL.ED 18:07
DX: I25.119 Atherosclerotic heart disease of native coronary artery with unspecified angina pectoris (principal); E78.00 Pure hypercholesterolemia, unspecified; I25.2 Old myocardial infarction; K21.9 Gastro-esophageal reflux disease without esophagitis; I12.9 Hypertensive chronic kidney disease with stage 1 through stage 4 chronic kidney disease, or unspecified chronic kidney disease; N18.30 Chronic kidney disease, stage 3 unspecified; E66.9 Obesity, unspecified; E11.22 Type 2 diabetes mellitus with diabetic chronic kidney disease; Z88.1 Allergy status to other antibiotic agents; Z79.82 Long term (current) use of aspirin; Z79.4 Long term (current) use of insulin; Z79.02 Long term (current) use of antithrombotics/antiplatelets; Z79.899 Other long term (current) drug therapy; Z95.1 Presence of aortocoronary bypass graft; Z86.73 Personal history of transient ischemic attack (TIA), and cerebral infarction without residual deficits
CPT/HCPCS: 36415; 71046; 80053; 83880; 84484; 85025; 93005; 99284; 99285-25; A9270-GY

== ENCOUNTER 2021-01-13 07:57 | Emergency (ER) | payer MEDICARE, BC ==
--- NOTE | 2021-01-13 08:39 | EDM.PDOC ---
ED HPI GENERAL MEDICAL PROBLEM - General Chief Complaint: ENT Problem Stated Complaint: NOSE BLEED THAT WONT STOP Time Seen by Provider: 01/13/21 08:30 Source of Information: Reports: Patient, RN, RN Notes Reviewed History Limitations: Reports: No Limitations - History of Present Illness INITIAL COMMENTS - FREE TEXT/NARRATIVE: Patient is a 70-year-old male who presents to ER with complaint of nosebleed from the right nare. Patient states approximately 730 this morning he blew his nose and began bleeding, unable to get it stopped. Patient is on Plavix and does take aspirin. Upon arrival to the ER right nare is packed with Kleenex. Kleenex removed followed by a large clot. Right nare is not actively bleeding at this time, no blood running down the back of the throat. Onset: Today, Sudden - Related Data Allergies Allergy/AdvReac Type Severity Reaction Status Date / Time cephalexin Allergy Anaphylactic Verified 01/13/21 08:15 Shock Home Meds: Home Meds Aspirin [Halfprin] 81 mg PO DAILY 07/24/16 [History] Furosemide [Lasix] 40 mg PO DAILY 07/24/16 [History] Insulin Aspart [NovoLOG] 10 units SQ TIDMEALS 07/24/16 [History] Isosorbide Mononitrate [Imdur] 60 mg PO BID 07/24/16 [History] Nitroglycerin [Nitrostat] 0.4 mg SL ASDIRECTED 07/24/16 [History] amLODIPine [Norvasc] 10 mg PO DAILY 07/24/16 [History] atorvaSTATin [Lipitor] 80 mg PO BEDTIME 07/24/16 [History] Clopidogrel [Plavix] 75 mg PO DAILY 10/08/17 [History] Chlorthalidone 25 mg PO DAILY 06/29/18 [History] cloNIDine HCL [Catapres] 0.2 mg PO TID 06/29/18 [History] Insulin Glargine,Hum.Rec.Anlog [Basaglar Kwikpen U-100] 50 units SQ BEDTIME 08/29/20 [History] Losartan [Cozaar] 25 mg PO DAILY 08/29/20 [History] Pantoprazole Sodium [Protonix] 40 mg PO DAILY 08/29/20 [History] Sodium Zirconium Cyclosilicate [Lokelma] 10 gm PO DAILY 08/29/20 [History] carvediloL [Carvedilol] 50 mg PO DAILY 08/29/20 [History] Past Medical History HEENT History: Reports: Cataract, Impaired Vision Other HEENT History: right and left eye. wears glasses Cardiovascular History: Reports: Bypass, CAD, High Cholesterol, Hypertension, [place], Pacemaker, Stents Respiratory History: Reports: Sleep Apnea, Other (See Below) Other Respiratory History: Hx of sleep study Gastrointestinal History: Reports: GERD Genitourinary History: Reports: Chronic Renal Insuffiency, Other (See Below) Other Genitourinary History: chronic renal failure stage 3 Musculoskeletal History: Reports: None Neurological History: Reports: CVA, Other (See Below) Other Neuro History: Krum palsy Psychiatric History: Reports: None Endocrine/Metabolic History: Reports: Diabetes, Type II, Obesity/BMI 30+ Hematologic History: Reports: None Immunologic History: Reports: None Oncologic (Cancer) History: Reports: None Dermatologic History: Reports: None - Infectious Disease History Infectious Disease History: Reports: Chicken Pox, Measles, Shingles - Past Surgical History Head Surgeries/Procedures: Reports: None HEENT Surgical History: Reports: Adenoidectomy, Cataract Surgery, Tonsillectomy, Other (See Below) Other HEENT Surgeries/Procedures: esophageal monometry Cardiovascular Surgical History: Reports: Coronary Artery Bypass, Coronary Artery Stent, Other (See Below) Other Cardiovascular Surgeries/Procedures: Implantable cardiverter defibrillator in place GI Surgical History: Reports: Appendectomy, Cholecystectomy, Colonoscopy, EGD Male Surgical History: Reports: None Neurological Surgical History: Reports: None Musculoskeletal Surgical History: Reports: None Social & Family History - Family History Family Medical History: No Pertinent Family History - Tobacco Use Tobacco Use Status *Q: Never Tobacco User - Caffeine Use Caffeine Use: Reports: None Caffeine Use Comment: 1 can daily - Recreational Drug Use Recreational Drug Use: No ED ROS ENT - Review of Systems Review Of Systems: Comprehensive ROS is negative, except as noted in HPI. ED EXAM, ENT - Physical Exam Exam: See Below Exam Limited By: No Limitations General Appearance: Alert, WD/WN, No Apparent Distress Eye Exam: Bilateral Eye: EOMI, Normal Inspection Ears: Normal External Exam, Hearing Grossly Normal Nose: Dried Blood, Injected Turbinates. No: Active Bleeding Mouth/Throat: Normal Inspection, Normal Gums, Normal Lips, Normal Oropharynx, Normal Teeth Head: Atraumatic, Normocephalic Neck: Normal Inspection, Supple, Non-Tender, Full Range of Motion Respiratory/Chest: No Respiratory Distress, Lungs Clear, Normal Breath Sounds, No Accessory Muscle Use, Chest Non-Tender Cardiovascular: Normal Peripheral Pulses, Regular Rate, Rhythm, No Edema, No Gallop, No JVD, No Murmur, No Rub GI/Abdominal: Normal Bowel Sounds, Soft, Non-Tender (Male) Exam: Deferred Rectal (Males) Exam: Deferred Back: Normal Inspection, Full Range of Motion Extremities: Normal Inspection, Normal Range of Motion, Non-Tender, No Pedal Edema, Normal Capillary Refill Neurological: Alert, Oriented, CN II-XII Intact, Normal Cognition, Normal Gait, Normal Reflexes, No Motor/Sensory Deficits Psychiatric: Normal Affect, Normal Mood Skin: Warm, Dry, Intact, Normal Color, No Rash Lymphatic: No Adenopathy Course - Vital Signs Last Recorded V/S: Last Vital Signs Temp 97.9 F 01/13/21 08:15 Pulse 60 01/13/21 09:19 Resp 18 01/13/21 09:19 BP 127/52 L 01/13/21 09:19 Pulse Ox 97 01/13/21 09:19 - Orders/Labs/Meds Labs: Laboratory Tests 01/13/21 01/13/21 Range/Units 08:39 08:39 WBC 4.4 L (5.0-10.0) 10^3/uL RBC 3.54 L (4.6-6.2) 10^6/uL Hgb 10.5 L (14.0-18.0) g/dL Hct 31.4 L (40.0-54.0) % MCV 88.7 (80-100) fL MCH 29.7 (27.0-34.0) pg MCHC 33.4 (33.0-35.0) g/dL Plt Count 158 (150-450) 10^3/uL Neut % (Auto) 65.2 (42.2-75.2) % Lymph % (Auto) 14.4 L (20.5-50.1) % [place] % (Auto) 14.9 H (2-8) % Eos % (Auto) 5.3 H (1.0-3.0) % Baso % (Auto) 0.2 (0.0-1.0) % PT 10.8 (9.0-12.0) SEC INR 1.1 (0.9-1.2) Departure - Departure Time of Disposition: :26 Disposition: Home, Self-Care 01 Condition: Good Clinical Impression: Epistaxis - Discharge Information *PRESCRIPTION DRUG MONITORING PROGRAM REVIEWED*: No *COPY OF PRESCRIPTION DRUG MONITORING REPORT IN PATIENT LATANYA: No Instructions: Nosebleed, Adult, [id number]-[id number] Forms: ED Department Discharge Additional Instructions: No blowing the nose Return to the ER with any worsening of symptoms Follow-up with your primary care provider If the nose begins to bleed again hold good pressure under the bridge of the nose for 10 minutes continuously Sepsis Event Note (ED) - Focused Exam Vital Signs: Vital Signs Temp Pulse Resp BP Pulse Ox 01/13/21 09:19 60 18 127/52 L 97 01/13/21 08:15 97.9 F 62 20 143/62 H 96
[2021-01-13 09:20] VITALS: BP 127/52; PULSE 60
== END 2021-01-13 09:34 | disposition home or self-care (01) ==
LOC: DL.ED 07:57
DX: R04.0 Epistaxis (principal); I25.10 Atherosclerotic heart disease of native coronary artery without angina pectoris; E78.00 Pure hypercholesterolemia, unspecified; I12.9 Hypertensive chronic kidney disease with stage 1 through stage 4 chronic kidney disease, or unspecified chronic kidney disease; E11.22 Type 2 diabetes mellitus with diabetic chronic kidney disease; N18.30 Chronic kidney disease, stage 3 unspecified; E66.9 Obesity, unspecified; I25.2 Old myocardial infarction; Z86.73 Personal history of transient ischemic attack (TIA), and cerebral infarction without residual deficits; Z95.0 Presence of cardiac pacemaker; Z88.1 Allergy status to other antibiotic agents; Z79.82 Long term (current) use of aspirin; Z79.4 Long term (current) use of insulin; Z79.899 Other long term (current) drug therapy; Z68.36 Body mass index [BMI] 36.0-36.9, adult
CPT/HCPCS: 36415; 85025; 85610; 99283

== ENCOUNTER 2022-03-11 16:33 | Emergency (ER) | payer MEDICARE, BC ==
[2022-03-11] MEDS ORDERED: predniSONE 20 MG Tab PO ONE (16:34)
[2022-03-11 16:59] VITALS: BP 182/72; PULSE 64
[2022-03-11 17:31] LABS: ANION GAP 14.3 mEq/L (7-13)
[2022-03-11] MEDS ORDERED: methylPREDNISolone Sodium Succinate 125 MG/2 ML SDV IM ONE (17:39)
[2022-03-11] MEDS ORDERED: Acetaminophen 325 MG Tab PO ONE (17:44)
[2022-03-11] MEDS ORDERED: predniSONE 20 MG Tab ONE (17:49)
== END 2022-03-11 18:04 | disposition home or self-care (01) ==
LOC: DL.ED 16:33
DX: S16.1XXA Strain of muscle, fascia and tendon at neck level, initial encounter (principal); I25.10 Atherosclerotic heart disease of native coronary artery without angina pectoris; E78.00 Pure hypercholesterolemia, unspecified; I10 Essential (primary) hypertension; I25.2 Old myocardial infarction; K21.9 Gastro-esophageal reflux disease without esophagitis; E11.9 Type 2 diabetes mellitus without complications; E66.9 Obesity, unspecified; Z68.37 Body mass index [BMI] 37.0-37.9, adult; Z88.1 Allergy status to other antibiotic agents; Z79.82 Long term (current) use of aspirin; Z79.4 Long term (current) use of insulin; Z79.02 Long term (current) use of antithrombotics/antiplatelets; Z79.899 Other long term (current) drug therapy; Z95.1 Presence of aortocoronary bypass graft
CPT/HCPCS: 36415; 80053; 85025; 96372; 99283; A9270; J2930; J7512

== ENCOUNTER 2022-05-10 13:47 | Emergency (ER) | payer MEDICARE, BC ==
[2022-05-10 14:30] VITALS: BP 150/65; PULSE 62
[2022-05-10 15:08] LABS: CORONAVIRUS COVID-19 NAA NEGATIVE (NEGATIVE); RESPIRATORY SYNCYTIAL VIR NAA POSITIVE (NEGATIVE)
== END 2022-05-10 17:15 | disposition home or self-care (01) ==
LOC: DL.ED 13:47
DX: R05.9 Cough, unspecified (principal); B97.4 Respiratory syncytial virus as the cause of diseases classified elsewhere; I25.10 Atherosclerotic heart disease of native coronary artery without angina pectoris; E78.00 Pure hypercholesterolemia, unspecified; E11.22 Type 2 diabetes mellitus with diabetic chronic kidney disease; I12.9 Hypertensive chronic kidney disease with stage 1 through stage 4 chronic kidney disease, or unspecified chronic kidney disease; N18.30 Chronic kidney disease, stage 3 unspecified; I25.2 Old myocardial infarction; K21.9 Gastro-esophageal reflux disease without esophagitis; Z86.73 Personal history of transient ischemic attack (TIA), and cerebral infarction without residual deficits; Z95.0 Presence of cardiac pacemaker; Z88.1 Allergy status to other antibiotic agents; Z79.82 Long term (current) use of aspirin; Z79.4 Long term (current) use of insulin; Z79.02 Long term (current) use of antithrombotics/antiplatelets; Z79.899 Other long term (current) drug therapy; Z95.1 Presence of aortocoronary bypass graft; Z20.822 Contact with and (suspected) exposure to COVID-19
CPT/HCPCS: 0241U; 99283

== ENCOUNTER 2023-03-01 20:09 | Emergency (ER) | payer MEDICARE, BC ==
[2023-03-01] MEDS ORDERED: Sodium Chloride 0.9% 10 ML Syringe FLUSH PRN (20:21)
[2023-03-01] MEDS ORDERED: Albuterol/Ipratropium 3.0-0.5 MG/3 ML Neb Soln NEB ONE (20:22)
[2023-03-01 20:56] LABS: BASOPHILS PERCENT AUTO 0.2 % (0.0-1.0); EOSINOPHILS PERCENT AUTO 2.5 % (1.0-3.0); HEMATOCRIT 32.5 % (40.0-54.0); HEMOGLOBIN 11.1 g/dL (14.0-18.0); LYMPHOCYTES PERCENT AUTO 6.7 % (20.5-50.1); MEAN CORPUSCULAR HEMOGLOBIN 30.9 pg (27.0-34.0); MEAN CORPUSCULAR HGB CONC 34.2 g/dL (33.0-35.0); MEAN CORPUSCULAR VOLUME 90.5 fL (80-100); MONOCYTES PERCENT AUTO 11.1 % (2-8); NEUTROPHILS PERCENT AUTO 79.5 % (42.2-75.2); PLATELET COUNT,PLT 175 10^3/uL (150-450); RED BLOOD CELL COUNT 3.59 10^6/uL (4.6-6.2); WHITE BLOOD CELL COUNT,WBC 8.6 10^3/uL (5.0-10.0)
[2023-03-01 21:06] LABS: A/G RATIO 0.9; ALBUMIN 3.4 g/dL (3.4-5.0); ANION GAP 13.7 mEq/L (7-13); BILIRUBIN TOTAL 0.4 mg/dL (0.2-1.0); BUN/CREATININE RATIO 11.2 (No establ ref range); C-REACTIVE PROTEIN 0.66 ng/dL (<=0.30); CALCIUM 8.3 mg/dL (8.5-10.1); CREATININE 2.78 mg/dL (0.70-1.30); EST CRCL DRUG DOSING (CG) 23.58 mL/min; POTASSIUM,K 4.7 mmol/L (3.5-5.1); PROTEIN TOTAL,TP 7.3 g/dL (6.4-8.2)
[2023-03-01 21:11] LABS: CORONAVIRUS COVID-19 NAA NEGATIVE (NEGATIVE); INFLUENZA A NAA NEGATIVE (NEGATIVE); INFLUENZA B NAA NEGATIVE (NEGATIVE)
[2023-03-01 21:13] LABS: LACTIC ACID 3.8 mmol/L (0.4-2.0)
[2023-03-01] MEDS ORDERED: Sodium Chloride 0.9% 1,000 ML IV ONE (21:26)
[2023-03-01] MEDS ORDERED: Dexamethasone 4 MG/ML SDV IVPUSH ONE (21:50)
[2023-03-01 22:09] VITALS: BP 165/56; PULSE 68
== END 2023-03-01 22:17 | disposition home or self-care (01) ==
LOC: DL.ED 20:09
DX: J81.0 Acute pulmonary edema (principal); J98.8 Other specified respiratory disorders; I25.810 Atherosclerosis of coronary artery bypass graft(s) without angina pectoris; E78.00 Pure hypercholesterolemia, unspecified; I25.2 Old myocardial infarction; K21.9 Gastro-esophageal reflux disease without esophagitis; I12.9 Hypertensive chronic kidney disease with stage 1 through stage 4 chronic kidney disease, or unspecified chronic kidney disease; E11.22 Type 2 diabetes mellitus with diabetic chronic kidney disease; N18.30 Chronic kidney disease, stage 3 unspecified; E66.9 Obesity, unspecified; Z68.39 Body mass index [BMI] 39.0-39.9, adult; Z88.1 Allergy status to other antibiotic agents; Z79.82 Long term (current) use of aspirin; Z79.899 Other long term (current) drug therapy; Z79.4 Long term (current) use of insulin; Z79.02 Long term (current) use of antithrombotics/antiplatelets; Z90.49 Acquired absence of other specified parts of digestive tract; Z20.822 Contact with and (suspected) exposure to COVID-19
CPT/HCPCS: 0240U; 36415; 71045; 80053; 83605; 83880; 84484; 85025; 86140; 87040; 93005; 93010; 96374; 99284; 99285-25; J1100; J3490; J7620-GY

== ENCOUNTER 2023-03-07 12:23 | Emergency (ER) | payer MEDICARE, BC ==
[2023-03-07 12:37] VITALS: PULSE 75
[2023-03-07] MEDS: Albuterol/Ipratropium 3.0-0.5 MG/3 ML Neb Soln NEB ONE (13:03)
[2023-03-07] MEDS: Lidocaine 2% Viscous Solution 15 ML UD PO ONE (13:03)
[2023-03-07 13:18] LABS: BASOPHILS PERCENT AUTO 0.5 % (0.0-1.0); EOSINOPHILS PERCENT AUTO 3.9 % (1.0-3.0); HEMATOCRIT 32.9 % (40.0-54.0); HEMOGLOBIN 11.3 g/dL (14.0-18.0); LYMPHOCYTES PERCENT AUTO 9.4 % (20.5-50.1); MEAN CORPUSCULAR HEMOGLOBIN 30.9 pg (27.0-34.0); MEAN CORPUSCULAR HGB CONC 34.3 g/dL (33.0-35.0); MEAN CORPUSCULAR VOLUME 89.9 fL (80-100); MONOCYTES PERCENT AUTO 19.8 % (2-8); NEUTROPHILS PERCENT AUTO 66.4 % (42.2-75.2); PLATELET COUNT,PLT 205 10^3/uL (150-450); RED BLOOD CELL COUNT 3.66 10^6/uL (4.6-6.2); WHITE BLOOD CELL COUNT,WBC 5.6 10^3/uL (5.0-10.0)
[2023-03-07 13:50] LABS: ANION GAP 14.2 mEq/L (7-13); BUN/CREATININE RATIO 19.5 (No establ ref range); CALCIUM 8.9 mg/dL (8.5-10.1); CREATININE 3.39 mg/dL (0.70-1.30); EST CRCL DRUG DOSING (CG) 19.99 mL/min; POTASSIUM,K 5.2 mmol/L (3.5-5.1); PROTEIN TOTAL,TP 7.5 g/dL (6.4-8.2)
[2023-03-07 13:55] LABS: A/G RATIO 0.67
[2023-03-07] MEDS: Lactated Ringers 1,000 ML IV ONE (14:38)
[2023-03-07] MEDS: Acetaminophen 500 MG Tab PO ONE (14:38)
[2023-03-07 15:41] VITALS: BP 157/66
[2023-03-07 16:00] LABS: APPEARANCE,URINE CLEAR (CLEAR); BILIRUBIN,URINE NEGATIVE (NEGATIVE); COLOR,URINE YELLOW (YELLOW); GLUCOSE,URINE NEGATIVE (NEGATIVE); KETONES,URINE NEGATIVE (NEGATIVE); LEUKOCYTE ESTERASE,URINE NEGATIVE (NEGATIVE); NITRITE,URINE NEGATIVE (NEGATIVE); OCCULT BLOOD,URINE TRACE-INTACT (NEGATIVE); PH,URINE 5.5 (5.0-9.0); PROTEIN,URINE >=300 (NEGATIVE); UROBILINOGEN,URINE 0.2 mg/dL (0.2-1.0)
[2023-03-07 16:07] LABS: ANION GAP 15.9 mEq/L (7-13); CALCIUM 8.8 mg/dL (8.5-10.1); CREATININE 3.3 mg/dL (0.70-1.30); EST CRCL DRUG DOSING (CG) 20.53 mL/min; POTASSIUM,K 4.9 mmol/L (3.5-5.1)
[2023-03-07 16:09] LABS: BACTERIA,URINE RARE /HPF (0-FEW/HPF); EPITHELIAL CELLS,URINE FEW /HPF (NOT SEEN); HYALINE CASTS,URINE FEW; MUCUS,URINE FEW /LPF (NOT SEEN); RBC,URINE 0-5 /HPF (0-5); WBC,URINE 0-5 /HPF (0-5/HPF)
[2023-03-07] MEDS: Take Home: Ondansetron 4 MG Tab.DIS, 5 Tab Pack PO ONE (16:56)
== END 2023-03-07 17:14 | disposition home or self-care (01) ==
LOC: DL.ED 12:23
DX: R05.3 Chronic cough (principal); I12.9 Hypertensive chronic kidney disease with stage 1 through stage 4 chronic kidney disease, or unspecified chronic kidney disease; I25.10 Atherosclerotic heart disease of native coronary artery without angina pectoris; I25.2 Old myocardial infarction; E78.00 Pure hypercholesterolemia, unspecified; E10.22 Type 1 diabetes mellitus with diabetic chronic kidney disease; N18.30 Chronic kidney disease, stage 3 unspecified; K21.9 Gastro-esophageal reflux disease without esophagitis; E66.9 Obesity, unspecified; Z68.36 Body mass index [BMI] 36.0-36.9, adult; Z79.4 Long term (current) use of insulin; Z79.899 Other long term (current) drug therapy; Z86.73 Personal history of transient ischemic attack (TIA), and cerebral infarction without residual deficits; Z95.0 Presence of cardiac pacemaker; Z79.82 Long term (current) use of aspirin; Z88.1 Allergy status to other antibiotic agents
CPT/HCPCS: 36415; 71046; 80048; 80053; 81001; 83880; 85025; 93005; 93010; 94640; 96360; 99284; 99284-25; A9270-GY; J7120; J7620-GY; Q0162

== ENCOUNTER 2023-06-16 15:22 | Emergency (ER) | payer MEDICARE, BC ==
[2023-06-16 15:44] VITALS: PULSE 60
[2023-06-16 16:14] LABS: HEMATOCRIT 31.5 % (40.0-54.0); MEAN CORPUSCULAR HEMOGLOBIN 32.4 pg (27.0-34.0); MEAN CORPUSCULAR HGB CONC 34.9 g/dL (33.0-35.0); MEAN CORPUSCULAR VOLUME 92.9 fL (80-100); PLATELET COUNT,PLT 187 10^3/uL (150-450); RED BLOOD CELL COUNT 3.39 10^6/uL (4.6-6.2); WHITE BLOOD CELL COUNT,WBC 2.8 10^3/uL (5.0-10.0)
[2023-06-16 16:23] LABS: BASOPHILS PERCENT AUTO 1.1 % (0.0-1.0); EOSINOPHILS PERCENT AUTO 9.3 % (1.0-3.0); LYMPHOCYTES PERCENT AUTO 25.6 % (20.5-50.1); MONOCYTES PERCENT AUTO 23.8 % (2-8); NEUTROPHILS PERCENT AUTO 40.2 % (42.2-75.2)
[2023-06-16] MEDS: Sodium Chloride 0.9% 1,000 ML IV SCH (16:30)
[2023-06-16 16:33] LABS: ALBUMIN 3.6 g/dL (3.4-5.0); ANION GAP 11.8 mEq/L (7-13); BILIRUBIN TOTAL 0.5 mg/dL (0.2-1.0); BUN/CREATININE RATIO 12.7 (No establ ref range); CALCIUM 8.6 mg/dL (8.5-10.1); CREATININE 3.08 mg/dL (0.70-1.30); POTASSIUM,K 4.8 mmol/L (3.5-5.1); PROTEIN TOTAL,TP 7.1 g/dL (6.4-8.2)
[2023-06-16 16:56] LABS: EOSINOPHILS PERCENT MAN 12 % (1-3); LYMPHOCYTES PERCENT MAN 25 % (20-50); MONOCYTES PERCENT MAN 22 % (2-8); SEG NEUTROPHILS PERCENT MAN 41 % (42-75)
[2023-06-16 16:57] LABS: GIANT PLATELETS FEW; PLATELET COUNT ESTIMATE ADEQUATE; TOXIC GRANULATION 1+ SLIGHT
[2023-06-16 17:13] VITALS: BP 153/52
== END 2023-06-16 17:35 | disposition home or self-care (01) ==
LOC: DL.ED 15:22
DX: R20.0 Anesthesia of skin (principal); I12.9 Hypertensive chronic kidney disease with stage 1 through stage 4 chronic kidney disease, or unspecified chronic kidney disease; I25.2 Old myocardial infarction; I25.10 Atherosclerotic heart disease of native coronary artery without angina pectoris; K21.9 Gastro-esophageal reflux disease without esophagitis; E66.9 Obesity, unspecified; E11.9 Type 2 diabetes mellitus without complications; N18.9 Chronic kidney disease, unspecified; Z88.8 Allergy status to other drugs, medicaments and biological substances; Z79.82 Long term (current) use of aspirin; Z79.4 Long term (current) use of insulin; Z79.899 Other long term (current) drug therapy; Z68.37 Body mass index [BMI] 37.0-37.9, adult; Z90.49 Acquired absence of other specified parts of digestive tract
CPT/HCPCS: 36415; 70450; 80053; 83735; 85025; 85610; 96360; 99283; 99284; J7030

== ENCOUNTER 2023-09-10 10:33 | Emergency (ER) | payer MEDICARE, BC ==
[2023-09-10] MEDS: Sodium Chloride 0.9% 10 ML Syringe FLUSH PRN (11:17)
[2023-09-10 11:27] LABS: INR 1.1 (0.9-1.2); PTT,PARTIAL THROMBOPLSTIN TIME 33.6 SEC (22.0-34.0)
[2023-09-10 11:49] LABS: ALANINE AMINOTRANSFERASE,ALT 22 U/L (16-63); ALBUMIN 3.3 g/dL (3.4-5.0); ALKALINE PHOSPHATASE 98 U/L (46-116); ANION GAP 14.2 mEq/L (7-13); ASPARTATE AMNIOTRANSFERASE,AST 20 U/L (15-37); BILIRUBIN TOTAL 0.6 mg/dL (0.2-1.0); BLOOD UREA NITROGEN,BUN 42 mg/dL (7-18); BUN/CREATININE RATIO 12.7 (No establ ref range); C-REACTIVE PROTEIN 0.71 ng/dL (<=0.50); CALCIUM 8.7 mg/dL (8.5-10.1); CARBON DIOXIDE,CO2 27 mmol/L (21-32); CHLORIDE,CL 103 mmol/L (98-107); CREATININE 3.32 mg/dL (0.70-1.30); GLUCOSE RANDOM 188 mg/dL (70-99); MAGNESIUM 2.2 mg/dL (1.8-2.4); POTASSIUM,K 5.2 mmol/L (3.5-5.1); PROTEIN TOTAL,TP 7.2 g/dL (6.4-8.2); SODIUM,NA 139 mmol/L (136-145); TSH ULTRASENSITIVE 2.94 uIU/mL (0.36-3.74)
[2023-09-10 11:51] LABS: A/G RATIO 0.85; B-TYPE NATRIURETIC PEPTIDE,BNP 576 pg/ml (0-100); ESTIMATED GFR 19 mL/min (>=60)
[2023-09-10 11:56] LABS: BASOPHILS PERCENT AUTO 0.8 % (0.0-1.0); EOSINOPHILS PERCENT AUTO 6.9 % (1.0-3.0); HEMATOCRIT 28.9 % (40.0-54.0); HEMOGLOBIN 9.8 g/dL (14.0-18.0); LYMPHOCYTES PERCENT AUTO 20.5 % (20.5-50.1); MEAN CORPUSCULAR HEMOGLOBIN 30.9 pg (27.0-34.0); MEAN CORPUSCULAR HGB CONC 33.9 g/dL (33.0-35.0); MEAN CORPUSCULAR VOLUME 91.2 fL (80-100); MONOCYTES PERCENT AUTO 23.6 % (2-8); NEUTROPHILS PERCENT AUTO 48.2 % (42.2-75.2); PLATELET COUNT,PLT 185 10^3/uL (150-450); RED BLOOD CELL COUNT 3.17 10^6/uL (4.6-6.2); WHITE BLOOD CELL COUNT,WBC 2.6 10^3/uL (5.0-10.0)
[2023-09-10 12:47] VITALS: BP 148/62; PULSE 58
== END 2023-09-10 12:47 | disposition home or self-care (01) ==
LOC: DL.ED 10:33
DX: I51.7 Cardiomegaly (principal); R20.2 Paresthesia of skin; M79.602 Pain in left arm; I12.9 Hypertensive chronic kidney disease with stage 1 through stage 4 chronic kidney disease, or unspecified chronic kidney disease; N18.9 Chronic kidney disease, unspecified; E11.22 Type 2 diabetes mellitus with diabetic chronic kidney disease; I25.10 Atherosclerotic heart disease of native coronary artery without angina pectoris; K21.9 Gastro-esophageal reflux disease without esophagitis; E78.00 Pure hypercholesterolemia, unspecified; E66.9 Obesity, unspecified; Z68.37 Body mass index [BMI] 37.0-37.9, adult; Z90.49 Acquired absence of other specified parts of digestive tract; Z79.82 Long term (current) use of aspirin; Z79.4 Long term (current) use of insulin; Z79.899 Other long term (current) drug therapy; Z88.1 Allergy status to other antibiotic agents
CPT/HCPCS: 36415; 71045; 80053; 82607; 83735; 83880; 84443; 84484; 85025; 85610; 85730; 86140; 93005; 93010; 99284; 99285; J3490

== ENCOUNTER 2024-01-23 16:21 | Emergency (ER) | payer MEDICARE, BC ==
[2024-01-23] MEDS ORDERED: Sodium Chloride 0.9% 10 ML Syringe FLUSH PRN (16:37)
[2024-01-23 16:44] LABS: BASOPHILS PERCENT AUTO 1.4 % (0.0-1.0); EOSINOPHILS PERCENT AUTO 9.2 % (1.0-3.0); HEMATOCRIT 33.3 % (40.0-54.0); HEMOGLOBIN 11.1 g/dL (14.0-18.0); LYMPHOCYTES PERCENT AUTO 30.7 % (20.5-50.1); MEAN CORPUSCULAR HEMOGLOBIN 30.2 pg (27.0-34.0); MEAN CORPUSCULAR HGB CONC 33.3 g/dL (33.0-35.0); MEAN CORPUSCULAR VOLUME 90.5 fL (80-100); NEUTROPHILS PERCENT AUTO 30.7 % (42.2-75.2); PLATELET COUNT,PLT 208 10^3/uL (150-450); RED BLOOD CELL COUNT 3.68 10^6/uL (4.6-6.2); WHITE BLOOD CELL COUNT,WBC 2.9 10^3/uL (5.0-10.0)
[2024-01-23 16:52] VITALS: BP 176/76; PULSE 66
[2024-01-23 17:00] LABS: A/G RATIO 0.9; ALANINE AMINOTRANSFERASE,ALT 31 U/L (16-63); ALBUMIN 3.6 g/dL (3.4-5.0); ALKALINE PHOSPHATASE 115 U/L (46-116); ANION GAP 15.3 mEq/L (7-13); BILIRUBIN TOTAL 0.5 mg/dL (0.2-1.0); BLOOD UREA NITROGEN,BUN 46 mg/dL (7-18); CALCIUM 8.8 mg/dL (8.5-10.1); CARBON DIOXIDE,CO2 27 mmol/L (21-32); CHLORIDE,CL 103 mmol/L (98-107); CREATININE 3.29 mg/dL (0.70-1.30); EST CRCL DRUG DOSING (CG) 18.98 mL/min; GLUCOSE RANDOM 112 mg/dL (70-99); MAGNESIUM 2.1 mg/dL (1.8-2.4); POTASSIUM,K 4.3 mmol/L (3.5-5.1); PROTEIN TOTAL,TP 7.5 g/dL (6.4-8.2); SODIUM,NA 141 mmol/L (136-145)
[2024-01-23 17:11] LABS: ASPARTATE AMNIOTRANSFERASE,AST 27 U/L (15-37)
[2024-01-23 17:12] LABS: C-REACTIVE PROTEIN < 0.50 ng/dL (<=0.50); ESTIMATED GFR 19 mL/min (>=60)
== END 2024-01-23 17:55 | disposition home or self-care (01) ==
LOC: DL.ED 16:21
DX: E86.0 Dehydration (principal); I25.10 Atherosclerotic heart disease of native coronary artery without angina pectoris; E78.00 Pure hypercholesterolemia, unspecified; I10 Essential (primary) hypertension; I25.2 Old myocardial infarction; K21.9 Gastro-esophageal reflux disease without esophagitis; E11.9 Type 2 diabetes mellitus without complications; Z95.0 Presence of cardiac pacemaker; Z95.5 Presence of coronary angioplasty implant and graft; Z86.73 Personal history of transient ischemic attack (TIA), and cerebral infarction without residual deficits; E66.9 Obesity, unspecified; Z68.38 Body mass index [BMI] 38.0-38.9, adult; Z90.49 Acquired absence of other specified parts of digestive tract; Z79.82 Long term (current) use of aspirin; Z79.4 Long term (current) use of insulin; Z79.899 Other long term (current) drug therapy; Z88.1 Allergy status to other antibiotic agents
CPT/HCPCS: 36415; 71046; 80053; 83735; 84484; 85025; 86140; 93005; 93010; 99284; 99285

== ENCOUNTER 2024-07-07 06:42 | Emergency (ER) | payer MEDICARE, BC ==
[2024-07-07 07:14] LABS: BASOPHILS PERCENT AUTO 1.3 % (0.0-1.0); HEMATOCRIT 31.8 % (40.0-54.0); LYMPHOCYTES PERCENT AUTO 18.7 % (20.5-50.1); MEAN CORPUSCULAR HEMOGLOBIN 30.6 pg (27.0-34.0); MEAN CORPUSCULAR HGB CONC 34.6 g/dL (33.0-35.0); MEAN CORPUSCULAR VOLUME 88.3 fL (80-100); MONOCYTES PERCENT AUTO 27.3 % (2-8); NEUTROPHILS PERCENT AUTO 45.7 % (42.2-75.2); PLATELET COUNT,PLT 177 10^3/uL (150-450)
[2024-07-07 07:38] LABS: A/G RATIO 0.78; ALBUMIN 3.1 g/dL (3.4-5.0); ANION GAP 13.4 mEq/L (7-13); BILIRUBIN TOTAL 0.6 mg/dL (0.2-1.0); BUN/CREATININE RATIO 11.3 (No establ ref range); CALCIUM 8.8 mg/dL (8.5-10.1); CREATININE 3.53 mg/dL (0.70-1.30); EST CRCL DRUG DOSING (CG) 18.3 mL/min; POTASSIUM,K 4.4 mmol/L (3.5-5.1); PROTEIN TOTAL,TP 7.1 g/dL (6.4-8.2); PROTHROMBIN TIME 10.1 SEC (9.0-12.0)
[2024-07-07] MEDS: Aspirin 81 MG Tab.Chew PO ONE ×2 (07:41)
[2024-07-07] MEDS: Diclofenac Sodium 1% Gel 100 GM Tube TOP ONE (07:54)
[2024-07-07 08:19] VITALS: BP 137/61; PULSE 58
== END 2024-07-07 08:22 | disposition home or self-care (01) ==
LOC: DL.ED 06:42
DX: M94.0 Chondrocostal junction syndrome [Tietze] (principal); I12.9 Hypertensive chronic kidney disease with stage 1 through stage 4 chronic kidney disease, or unspecified chronic kidney disease; I25.2 Old myocardial infarction; I25.10 Atherosclerotic heart disease of native coronary artery without angina pectoris; E11.22 Type 2 diabetes mellitus with diabetic chronic kidney disease; E66.9 Obesity, unspecified; E78.00 Pure hypercholesterolemia, unspecified; K21.9 Gastro-esophageal reflux disease without esophagitis; N18.32 Chronic kidney disease, stage 3b; Z88.1 Allergy status to other antibiotic agents; Z79.82 Long term (current) use of aspirin; Z79.899 Other long term (current) drug therapy; Z95.0 Presence of cardiac pacemaker; Z79.4 Long term (current) use of insulin; Z90.49 Acquired absence of other specified parts of digestive tract; Z68.41 Body mass index [BMI] 40.0-44.9, adult
CPT/HCPCS: 36415; 71045; 80053; 84484; 85025; 85610; 93005; 93010; 99284; 99285; A9270-GY

== ENCOUNTER 2024-09-14 08:38 | Emergency (ER) | payer MEDICARE, BC ==
[2024-09-14 09:07] LABS: BASOPHILS PERCENT AUTO 0.7 % (0.0-1.0); EOSINOPHILS PERCENT AUTO 2.2 % (1.0-3.0); HEMOGLOBIN 8.5 g/dL (14.0-18.0); LYMPHOCYTES PERCENT AUTO 7.5 % (20.5-50.1); MEAN CORPUSCULAR HEMOGLOBIN 32.2 pg (27.0-34.0); MEAN CORPUSCULAR VOLUME 94.7 fL (80-100); MONOCYTES PERCENT AUTO 14.8 % (2-8); NEUTROPHILS PERCENT AUTO 74.8 % (42.2-75.2); PLATELET COUNT,PLT 160 10^3/uL (150-450); RED BLOOD CELL COUNT 2.64 10^6/uL (4.6-6.2); WHITE BLOOD CELL COUNT,WBC 4.5 10^3/uL (5.0-10.0)
[2024-09-14 09:38] LABS: ALBUMIN 2.5 g/dL (3.4-5.0); ANION GAP 11.6 mEq/L (7-13); BILIRUBIN TOTAL 0.7 mg/dL (0.2-1.0); BUN/CREATININE RATIO 17.7 (No establ ref range); CALCIUM 8.7 mg/dL (8.5-10.1); CREATININE 4.01 mg/dL (0.70-1.30); EST CRCL DRUG DOSING (CG) 16.41 mL/min; POTASSIUM,K 4.6 mmol/L (3.5-5.1); PROTEIN TOTAL,TP 6.2 g/dL (6.4-8.2)
[2024-09-14 09:39] LABS: A/G RATIO 0.68
[2024-09-14] MEDS: Aspirin 81 MG Tab.Chew PO ONE (10:19)
[2024-09-14] MEDS: Furosemide 40 MG/4 ML VIAL IVPUSH ONE (10:19)
[2024-09-14 17:55] VITALS: BP 171/66; PULSE 58
== END 2024-09-14 17:35 ==
LOC: DL.ED 08:38
DX: N17.9 Acute kidney failure, unspecified (principal); I25.10 Atherosclerotic heart disease of native coronary artery without angina pectoris; I25.2 Old myocardial infarction; I12.9 Hypertensive chronic kidney disease with stage 1 through stage 4 chronic kidney disease, or unspecified chronic kidney disease; N18.9 Chronic kidney disease, unspecified; E78.00 Pure hypercholesterolemia, unspecified; K21.9 Gastro-esophageal reflux disease without esophagitis; E11.22 Type 2 diabetes mellitus with diabetic chronic kidney disease; Z90.49 Acquired absence of other specified parts of digestive tract; Z88.1 Allergy status to other antibiotic agents; Z79.4 Long term (current) use of insulin; Z79.82 Long term (current) use of aspirin; Z79.899 Other long term (current) drug therapy
CPT/HCPCS: 36415; 71046; 80053; 83880; 84484; 85025; 93005; 94660; 96374; 99285; A9270; J1938